=== PATIENT | female | born 2000 | race Hispanic/Latino ===

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

== ENCOUNTER 2019-04-12 14:39 | Outpatient (CLI) | payer OTHER ==
--- NOTE | 2019-04-12 15:39 | ULT ---
EXAM: COMPLETE OB ULTRASOUND GREATER THAN 14 WEEKS: 04/12/19 HISTORY: Normal , anatomy, size and dates. Single viable intrauterine fetus is noted in breach presentation. Cervical length 4.2 cm. Placenta is fundal and maternal right side. heart rate 126 beats per minute. Amniotic fluid is within norm al limits. anatomy: Visualized brain, four chamber heart, three vessel cord, stomach, bladder, kidneys, spine, extr emity regions are unremarkable. biometry: BPD 4.1 cm - - 18 weeks, 4 days Head circumference 15.8 cm - - 18 weeks, 5 days Abdominal circumference 13.4 cm - - 19 weeks, 0 days Femur length 2.8 cm - - 18 weeks, 4 days IMPRESSION: 1. Gestational age average 18 weeks, 5 days. 2. CHANDLER 08/30/19. 3. Estimated weight 253 grams. POS: TPC
== END 2019-04-12 14:40 | disposition home or self-care (01) ==
LOC: BICULT 14:39
PROVIDERS: ATTEND Family Medicine
DX: Z34.82 Encounter for supervision of other normal pregnancy, second trimester (principal); Z3A.18 18 weeks gestation of pregnancy
CPT/HCPCS: 76805

== ENCOUNTER 2019-06-04 13:29 | Day surgery (SDC) | payer OTHER ==
[2019-06-04 14:01] VITALS: BP 126/73; TEMP 98.5; BMI 28.1
[2019-06-04] MEDS ORDERED: hydrALAZINE 20 MG/ML VIAL SLOW IVP PRN (14:13)
--- NOTE | 2019-06-04 14:22 | PDOC.LDHP ---
Labor and Delivery H&P Chief complaint: abdominal pain HPI: 18 yo presents for evaluation of abdominal pain and back pain. Pt reports she has midline thoracic back pain that is rated 9/10. She reports this pain has been present since before and has occasionally flared up Current gestational age (weeks): 27 (27+5) Grav: 1 Para: 0 Current complications: none Current medications: pre-shruti vitamins Previous surgical history: none Allergies/Adverse Reactions: Allergies Allergy/AdvReac Type Severity Reaction Status Date / Time No Known Drug Allergies Allergy Verified 06/04/19 13:58 Social history: none - Physical Exam Vital signs reviewed and normal: yes General: NAD, resting Heart: RRR Lungs: CTAB Abdomen: NTTP Extremeties: no edema FHT: category 1, variability present - OB Labs Blood type: unknown RH: unknown Antibody Screen: unknown HIV: unknown RPR: unknown HEPSAg: unknown 1 hour GCT: unknown GBS: unknown - Plan -: 1) MSK pain - pt had mild ruq tenderness to palpation - RUQ showed no evidence of cholecystitis, but did show mild rt hydronephrosis - Renal US showed good ureteral jet flow b/l no evidenc of obstruction - pts pain responded to atarax and morphine - very likely MSK, advised to take tylenol prn and occasional massages/heating pad for pain relief PRN - Pt to f/u with POB Addendum - Attending - Attending Attestation Date/Time: 06/06/19 1049 I personally evaluated the patient and discussed the management with Dr. Caro I agree with the History, Examination, Assessment and Plan documented above with any addition or exceptions noted below. Pt with 1yr h/o intermittent mid thoracic back pain who has presented with a flare of pain. worse with certain movements. denies h/o scoliosis or other skeletal problems. vital signs: 121/66 71 16 99.1 nad focal ttp along paravertebral muscles mid thoracic left>right. some tenderness midline after massage to the area and point pressure pt reports some relief. we discussed posture, light excercise to strengthen, and to consider supportive bra. massage and heat to the area as needed, tylenol pt to f/u with Dr Marte as scheduled
[2019-06-04] MEDS ORDERED: Acetaminophen 325 MG TAB PO SCH (14:30)
[2019-06-04] MEDS ORDERED: hydrOXYzine 25 MG TAB PO SCH (14:30)
[2019-06-04 14:44] LABS: Bacteria/HPF None Seen HPF (None Seen); Bilirubin Negative (Negative); Blood, Urine Negative (Negative); Clarity Clear (Clear); Glucose, Urine (Dipstick) Normal (Negative); Leukocyte Negative Leu/uL (Negative); Nitrite Negative (Negative); Protein, Urine (Dipstick) 30 mg/dL (Neg-Trace); Urobilinogen Normal mg/dL (Less than 2)
[2019-06-04 14:45] LABS: Urine Culture Reflex No No
[2019-06-04 14:48] LABS: #Eosinphils 0.1 thou/uL (0.0-0.7); #Lymphocytes 1.6 thou/uL (1.20-3.40); #Monocytes 0.5 thou/uL (0.11-0.59); #Neutrophils 8.7 thou/uL (1.40-6.50); %Basophils 0.4 % (0.0-1.0); %Eosinophils 0.6 % (0.0-10.0); %Lymphocytes 14.5 % (28.0-48.0); %Monocytes 4.2 % (0.0-4.0); %Neutrophils 80.4 % (31.0-61.0); Hemoglobin 11.6 g/dL (12.0-16.0); Mean Corpuscular HGB CONC 33.2 g/dL (32.0-36.0); Mean Corpuscular Hemoglobin 29.3 pg (25.0-35.0); Mean Corpuscular Volume 88.1 fL (78.0-98.0); Mean Platelet Volume 7.3 fL (7.4-10.4); Platelet Count 309 thou/uL (130-400); Red Blood Cell (RBC) Count 3.97 mill/uL (4.00-5.20); White Blood Cell (WBC) Count 10.8 thou/uL (4.8-10.8)
[2019-06-04 15:11] LABS: ALT (SGPT) 17 U/L (8-55); AST (SGOT) 15 U/L (5-30); Albumin 3.5 g/dL (3.5-5.0); Alkaline Phosphatase 210 U/L (40-150); Anion Gap 11 mmol/L (10-20); BUN (Urea Nitrogen) 11 mg/dL (8.4-21.0); Bilirubin, Total 0.3 mg/dL (0.2-1.2); Calc. Creatinine Clearance 161 mL/min (70-130); Calcium 9.2 mg/dL (7.8-10.44); Carbon Dioxide 21 mmol/L (22-29); Chloride 107 mmol/L (98-107); Estimated GFR-MDRD Greater than 90; Globulin 3.3 g/dL (2.4-3.5); Glucose 105 mg/dL (70-105); Potassium 3.8 mmol/L (3.5-5.1); Protein, Total 6.8 g/dL (6.0-8.3); Sodium 135 mmol/L (136-145)
[2019-06-04] MEDS ORDERED: Morphine 4 MG/ML VIAL IM PRN (15:18)
[2019-06-04] MEDS ORDERED: Morphine 4 MG/ML VIAL ONE (15:20)
--- NOTE | 2019-06-04 16:16 | ULT ---
EXAM: US Gallbladder RUQ CLINICAL HISTORY: Right upper quadrant tenderness, nausea. Patient is . COMPARISON: None. FINDINGS: Pancreas: Limited evaluation due to overlying bowel gas Liver:Normal echotexture. No hepatic masses or intrahepatic biliary dilatation. Right hepatic lobe me asures 15.7 cm. Portal vein: Patent with appropriate directional flow Gallbladder: Sonographic evidence of echogenic material with posterior acoustic shadowing compatible with 1.5 and 1.4 cm adherent gallstones. Gallbladder wall is not thickened. Barksdale's sign:Negative Bile ducts: 0.3 cm Right kidney: Hydronephrosis.. Right kidney measures 10.4 cm in length. heart tones with a rate of 136 bpm IMPRESSION: 1. Sonographic evidence of cholelithiasis without definite evidence of cholecystitis 2. Right-sided hydronephrosis, incompletely evaluated
--- NOTE | 2019-06-04 17:39 | ULT ---
EXAM: BILATERAL RENAL ULTRASOUND COMPLETE: 06/04/19 HISTORY: Hematuria, right hydronephrosis, concern for obstruction or stone. FINDINGS: Right kidney measures 11.4 x 5.2 x 5.3 cm. The left kidney measures 10.9 x 5.3 x 6.1 cm. FINDINGS: Mild to moderate right renal hydronephrosis. No perinephric process. Urinary bladder is unremarkable although nearly empty. IMPRESSION: Right renal mild to moderate hydronephrosis. No other significant acute process. POS: PAULO
== END 2019-06-04 17:33 | disposition home or self-care (01) ==
LOC: L&D/OP 13:29
PROVIDERS: ATTEND Family Medicine
DX: O99.89 Other specified diseases and conditions complicating pregnancy, childbirth and the puerperium (principal); N13.30 Unspecified hydronephrosis; R31.9 Hematuria, unspecified; M54.6 Pain in thoracic spine; Z3A.27 27 weeks gestation of pregnancy
CPT/HCPCS: 76705; 76770; 80053; 81001; 85025; 96372; 99283; J2270

== ENCOUNTER 2019-06-12 10:57 | Inpatient (IN) | payer OTHER, SELFPAY ==
[2019-06-12 11:28] LABS: #Basophils 0.1 thou/uL (0.0-0.2); #Lymphocytes 1.7 thou/uL (1.20-3.40); #Monocytes 0.5 thou/uL (0.11-0.59); #Neutrophils 6.6 thou/uL (1.40-6.50); %Eosinophils 0.2 % (0.0-10.0); %Lymphocytes 19.3 % (28.0-48.0); %Monocytes 5.3 % (0.0-4.0); %Neutrophils 74.2 % (31.0-61.0); Hemoglobin 12.1 g/dL (12.0-16.0); Mean Corpuscular HGB CONC 33.5 g/dL (32.0-36.0); Mean Corpuscular Hemoglobin 29.4 pg (25.0-35.0); Mean Corpuscular Volume 87.9 fL (78.0-98.0); Mean Platelet Volume 6.1 fL (7.4-10.4); Platelet Count 315 thou/uL (130-400); RBC Distribution Width 12.5 % (11.5-14.5); Red Blood Cell (RBC) Count 4.12 mill/uL (4.00-5.20); White Blood Cell (WBC) Count 8.8 thou/uL (4.8-10.8)
[2019-06-12 11:41] LABS: Bilirubin Large (Negative); Blood, Urine Negative (Negative); Clarity Cloudy (Clear); Glucose, Urine (Dipstick) Negative (Negative); Leukocyte Negative (Negative); Nitrite Negative (Negative); Protein, Urine (Dipstick) 30 mg/dL (Neg-Trace)
[2019-06-12 11:43] LABS: Bacteria/HPF 2+ HPF (None Seen); RBC/HPF 0-3 HPF (0-3)
[2019-06-12 11:44] LABS: Mucous/LPF 2+ LPF (<2+)
[2019-06-12 11:45] LABS: ALT (SGPT) 534 U/L (8-55); AST (SGOT) 286 U/L (5-30); Albumin 3.5 g/dL (3.5-5.0); Alkaline Phosphatase 562 U/L (40-150); Anion Gap 15 mmol/L (10-20); BUN (Urea Nitrogen) 9 mg/dL (8.4-21.0); Bilirubin, Total 3.4 mg/dL (0.2-1.2); Calc. Creatinine Clearance 0 mL/min (70-130); Calcium 9.1 mg/dL (7.8-10.44); Carbon Dioxide 19 mmol/L (22-29); Chloride 108 mmol/L (98-107); Estimated GFR-MDRD Greater than 90; Globulin 3.5 g/dL (2.4-3.5); Glucose 91 mg/dL (70-105); Lipase 18 U/L (8-78); Potassium 3.9 mmol/L (3.5-5.1); Sodium 138 mmol/L (136-145)
--- NOTE | 2019-06-12 13:19 | ULT ---
US Gallbladder RUQ: 06/12/2019 11:55 AM CLINICAL HISTORY: Abdominal pain that is increasing in a 27-year-old female. STUDY: Limited right upper quadrant ultrasound of abdomen. COMPARISON: 06/04/2019 FINDINGS: Liver: Size: Normal. Echogenicity: Normal. Contour: Smooth. Mass: None. Bile ducts: No intrahepatic or extrahepatic biliary dilatation. Common bile duct measures 16 mm. Gallbladder: Cholelithiasis. A positive sonographic Barksdale's sign was reported by the technologist. Pancreas: Head and body appear normal; tail obscured by bowel gas. Right kidney: Mild stable hydronephrosis as seen on the prior examination. Right kidney measuring 10. 0 cm in length. IMPRESSION: 1. Cholelithiasis and enlargement of the common bile duct. There is interval enlargement compared to the prior exam. 2. Hydronephrosis of the right kidney may be secondary to compression of the distal ureter.
[2019-06-12 15:54] VITALS: BMI 28.3
[2019-06-12] MEDS ORDERED: Sodium Chloride 0.9% 1,000 ML IV SCH (15:56)
--- NOTE | 2019-06-12 16:13 | PDOC.FPROB ---
FMR OB H&P: HPI - History of Present Illness Chief Complaint: back pain Indentification: History of Present Illness: This 18-yo w/ hx of 1 miscarriage presented to outside ED for evaluation of upper back pain which was worsening over the past week. The pain started off and on prior to and was absent for the majority of ; however, last week the patient started having upper back pain L>R. U/ S at the time showed cholelithiasis. Her pain worsened today, and abd u/s today showed increased interval change w/ dilated CBD and choledocholithiasis. She notes no other symptoms w/ the pain. She is still eating and drinking, although she hasn't had anything to eat today. She denies MARTINEZ, leg swelling, and HTN. No other problems reported for this . She is feeling the baby move, denies VB and LOF or discharge. Primary Care Physician: Vasu FMR OB H&P: Current - Care : 2 Para: 0 Gestational age: 28.5 wga Due date: 08/30/2020 Dating Criteria: 18.5 wga U/S Course/Complications: cholelithiasis FMR OB H&P: History - OB History OB History: Previous miscarriage at 9 wga - Social History Social History: Denies drugs, alcohol, smoking. - Family History Family History: FHx: hypercholesterolemia Denies history of gallbladder problems FMR OB H&P: Medications - Current Home Medications: Medication Instructions Recorded Confirmed Type Vitamin 1 tablet PO DAILY 06/04/19 06/04/19 History Allergies/Adverse Reactions: Allergies Allergy/AdvReac Type Severity Reaction Status Date / Time No Known Drug Allergies Allergy Verified 06/04/19 13:58 FMR OB H&P: ROS - Review of Systems General: denies: fever/chills FMR OB H&P: Vital Signs - Maternal Vital signs: Vital Signs - First Documented Temp Pulse Resp BP 99.5 F 88 20 143/78 H 06/12/19 15:52 06/12/19 15:52 06/12/19 15:52 06/12/19 15:52 FMR OB H&P: Results - Labs Lab results: Laboratory Results - last 24 hr 06/12/19 06/12/19 06/12/19 11:26 11:26 11:26 WBC 8.8 RBC 4.12 Hgb 12.1 Hct 36.3 MCV 87.9 MCH 29.4 MCHC 33.5 RDW 12.5 Plt Count 315 MPV 6.1 L Neutrophils % 74.2 H Lymphocytes % 19.3 L Monocytes % 5.3 H Eosinophils % 0.2 Basophils % 1.0 Neutrophils # 6.6 H Lymphocytes # 1.7 Monocytes # 0.5 Eosinophils # 0.0 Basophils # 0.1 Sodium 138 Potassium 3.9 Chloride 108 H Carbon Dioxide 19 L Anion Gap 15 BUN 9 Creatinine 0.59 L Estimated GFR (MDRD) Greater than 90 Glucose 91 Calcium 9.1 Total Bilirubin 3.4 H AST 286 H ALT 534 H Alkaline Phosphatase 562 H Troponin I Less than 0.010 Serum Total Protein 7.0 Albumin 3.5 Globulin 3.5 Albumin/Globulin Ratio 1.0 L Lipase 18 Urine Color Urine Clarity Urine pH Ur Specific [place] Urine Protein Urine Glucose (UA) Urine Ketones Urine Blood Urine Nitrite Urine Bilirubin Urine Urobilinogen Ur Leukocyte Esterase Urine RBC Urine WBC Ur Squamous Epith Cells Urine Bacteria Urine Mucus 06/12/19 11:30 WBC RBC Hgb Hct MCV MCH MCHC RDW Plt Count MPV Neutrophils % Lymphocytes % Monocytes % Eosinophils % Basophils % Neutrophils # Lymphocytes # Monocytes # Eosinophils # Basophils # Sodium Potassium Chloride Carbon Dioxide Anion Gap BUN Creatinine Estimated GFR (MDRD) Glucose Calcium Total Bilirubin AST ALT Alkaline Phosphatase Troponin I Serum Total Protein Albumin Globulin Albumin/Globulin Ratio Lipase Urine Color Sandra Urine Clarity Cloudy Urine pH 6.0 Ur Specific [place] 1.025 Urine Protein 30 A Urine Glucose (UA) Negative Urine Ketones 40 A Urine Blood Negative Urine Nitrite Negative Urine Bilirubin Large A Urine Urobilinogen 1.0 Ur Leukocyte Esterase Negative Urine RBC 0-3 Urine WBC 4-6 A Ur Squamous Epith Cells 11-20 A Urine Bacteria 2+ A Urine Mucus 2+ A FMR OB H&P: A/P - Problem List (1) Choledocholithiasis Current Visit: Yes Status: Acute Code(s): K80.50 - CALCULUS OF BILE DUCT W/ O CHOLANGITIS OR CHOLECYST W/O OBST (2) and not yet delivered in second trimester Current Visit: Yes Status: Acute Code(s): Z34.92 - ENCNTR FOR SUPRVSN OF NORMAL PREG, UNSP, SECOND TRIMESTER Disposition: 18 yo who presents for: Choledocholithiasis w/ Transaminitis - GI consulted for possible ERCP - If GI here is unable to do ERCP, will need to transfer. - Urine Pr/Cr to assess for preeclampsia in light of RUQ pain in second trimester - Continue to monitor patient - If decrease in movement, begin FHR/[place] monitoring Dispo: Inpatient Alicia Dunn MD PGY-1 Discussion: Date/Time: 06/12/19 4502 This H&P was discussed with Dr. Womack and Dr. Puckett who agree with the above documentation and plan.
[2019-06-12] MEDS ORDERED: Promethazine HCl 25 MG/ML VIAL IM PRN (16:48)
[2019-06-12] MEDS ORDERED: Ondansetron PF 4 MG/2 ML Vial IVP PRN (16:48)
[2019-06-12] MEDS ORDERED: hydrALAZINE 20 MG/ML VIAL SLOW IVP PRN (16:48)
[2019-06-12] MEDS: Lactated Ringer's 1,000 ML IV SCH (16:59)
--- NOTE | 2019-06-12 18:20 | PDOC.FPROB ---
FMR OB H&P: Medications - Current Home Medications: Medication Instructions Recorded Confirmed Type Vitamin 1 tablet PO DAILY 06/04/19 06/12/19 History Allergies/Adverse Reactions: Allergies Allergy/AdvReac Type Severity Reaction Status Date / Time No Known Drug Allergies Allergy Verified 06/12/19 18:22 FMR OB H&P: Vital Signs - Maternal Vital signs: Vital Signs - First Documented Temp Pulse Resp BP 99.5 F 88 20 143/78 H 06/12/19 15:50 06/12/19 15:50 06/12/19 15:50 06/12/19 15:50 FMR OB H&P: Results - Labs Lab results: Laboratory Results - last 24 hr 06/12/19 06/12/19 06/12/19 11:26 11:26 11:26 WBC 8.8 RBC 4.12 Hgb 12.1 Hct 36.3 MCV 87.9 MCH 29.4 MCHC 33.5 RDW 12.5 Plt Count 315 MPV 6.1 L Neutrophils % 74.2 H Lymphocytes % 19.3 L Monocytes % 5.3 H Eosinophils % 0.2 Basophils % 1.0 Neutrophils # 6.6 H Lymphocytes # 1.7 Monocytes # 0.5 Eosinophils # 0.0 Basophils # 0.1 Sodium 138 Potassium 3.9 Chloride 108 H Carbon Dioxide 19 L Anion Gap 15 BUN 9 Creatinine 0.59 L Estimated GFR (MDRD) Greater than 90 Glucose 91 Calcium 9.1 Total Bilirubin 3.4 H AST 286 H ALT 534 H Alkaline Phosphatase 562 H Lactate Dehydrogenase Troponin I Less than 0.010 Serum Total Protein 7.0 Albumin 3.5 Globulin 3.5 Albumin/Globulin Ratio 1.0 L Lipase 18 Urine Color Urine Clarity Urine pH Ur Specific [place] Urine Protein Urine Glucose (UA) Urine Ketones Urine Blood Urine Nitrite Urine Bilirubin Urine Urobilinogen Ur Leukocyte Esterase Urine RBC Urine WBC Ur Squamous Epith Cells Urine Bacteria Urine Mucus 06/12/19 06/12/19 11:30 17:14 WBC RBC Hgb Hct MCV MCH MCHC RDW Plt Count MPV Neutrophils % Lymphocytes % Monocytes % Eosinophils % Basophils % Neutrophils # Lymphocytes # Monocytes # Eosinophils # Basophils # Sodium Potassium Chloride Carbon Dioxide Anion Gap BUN Creatinine Estimated GFR (MDRD) Glucose Calcium Total Bilirubin AST ALT Alkaline Phosphatase Lactate Dehydrogenase 337 H Troponin I Serum Total Protein Albumin Globulin Albumin/Globulin Ratio Lipase Urine Color Sandra Urine Clarity Cloudy Urine pH 6.0 Ur Specific [place] 1.025 Urine Protein 30 A Urine Glucose (UA) Negative Urine Ketones 40 A Urine Blood Negative Urine Nitrite Negative Urine Bilirubin Large A Urine Urobilinogen 1.0 Ur Leukocyte Esterase Negative Urine RBC 0-3 Urine WBC 4-6 A Ur Squamous Epith Cells 11-20 A Urine Bacteria 2+ A Urine Mucus 2+ A FMR OB H&P: A/P - Problem List (1) Choledocholithiasis Current Visit: Yes Status: Acute Code(s): K80.50 - CALCULUS OF BILE DUCT W/ O CHOLANGITIS OR CHOLECYST W/O OBST (2) and not yet delivered in second trimester Current Visit: Yes Status: Acute Code(s): Z34.92 - ENCNTR FOR SUPRVSN OF NORMAL PREG, UNSP, SECOND TRIMESTER Discussion: Date/Time: 06/12/191819 PCP: Vasu HPI: This is a 18 yo at 28.5 wks admitted for workup of cholelithiasis. She states she has had 2 weeks of worsening lower back pain sometimes radiating up the shoulders. Nothing seems to make it better or worse. She denies N/V/D. She denies eating making it worse. She states the pain comes and goes, it is currently ranked at 6/10. She has tried Tylenol and this has not helped. She affirms movement, denies cxns, ROM, bleeding/discharge. Denies MARTINEZ, visual changes, SOB, or swelling. History: OB hx: 1 miscarriage PMH: denies htn, asthma, dm PSH: neg Meds: PNV All: NKDA Soc Hx: denies smoking, alcohol, drugs Fam Hx: denies downs, congenital defects REVIEW OF SYSTEMS: Gen: no fever, chills, or sweats Neuro: no numbness/tingling, no weakness, denies headache ENT: denies congestion Eyes: no visual changes Resp: no cough, no SOB, no wheeze Card: denies chest pain, no palpitations GI: see hpi : no dysuria, no hematuria Skin: no rash, no erythema Psych: denies hx anxiety/depression Vitals: T: 99.5 R: 20 BP: 129/84 P:88 Sat: 100% on RA Wt: 72kg PHYSICAL EXAMINATION: General: NAD, alert and oriented x3 HEENT: EOMI, normal sclera Neck: Supple. Full ROM. Heart/Cardiovascular System: RRR, Cap refill < 3 seconds, no rub, no murmur Lungs/Respiratory System: clear to auscultation bilaterally. No increased work of breathing. Room air. Abdomen/Gastro-Intestinal System: + pain to palpation of RUQ, normal bowel sounds, Gravid Extremities: Warm extremities. No cyanosis or edema. Neuro: No gross deficits appreciated Psychiatry: Awake, Alert and cooperative with exam Skin: No lesions, rashes Musculoskeletal: Full ROM A/P: This is a 18 yo at 28.5 wks admitted for workup of cholelithiasis. # likely choledocolithiasis - 16mm CBD, interval increased from 06/04 on RUQ US - Gen surg recd GI consult, spoke to Dr. Regalado, appreciate recs - AST 986, ALT 534, ALP 563, bili 3.4 # - 28.5 wks, q shift monitoring - Elevated pressure on arrival now resolved - Will check urine pr/cr, ldh, haptoglobin to r/o HELLP - Plts 315, hgb 12.1, asymptomatic Dispo: awaiting GI recs to see if patient would be a candidate for ERCP Addendum - Attending - Attending Attestation Date/Time: 06/13/19 0921 I personally evaluated the patient and discussed the management with Dr. Womack on 06/12. I agree with the History, Examination, Assessment and Plan documented above with any addition or exceptions noted below. CC: abd pain We will follow - GI and GS consulted, antibiotics per specialists. qShift NST, BPP/growth on admission. Notified Dr. Leone, her continuity, who will see the patient but agrees with admission to our service.
[2019-06-12] MEDS ORDERED: Morphine 4 MG/ML VIAL SLOW IVP PRN (18:35)
[2019-06-12 20:07] LABS: Creatinine, Urine 171.37 mg/dL (47-110)
[2019-06-13] MEDS: Lactated Ringer's 1,000 ML IV SCH ×3 (01:31→21:32)
--- NOTE | 2019-06-13 06:04 | PDOC.OBAPN ---
FMR OB AP PN: Sub - Interval History Hospital Day: 2 (Admitted 06/13/2019) Chief Complaint: Back pain, improved Indentification: 18-yo Interval History: NAEON. No complaints. +FM, no ctx. Slept well. No concerns. FMR OB AP PN: Obj - Maternal Vital signs: BP: 127/66 HR: 92 RR: 14 Tmax: 98.2 F Pox: Satting well on RA Wt: 72.5 kg - Urine output I&O: not measuring - Heart Tones Baseline: 150 (Reactive. Few spontaneous intermittent decelerations.) Variability: moderate Acceleration: present [place] contractions every: none FMR OB AP PN: Exam - Physical Exam General: NAD (sleepy) HEENT: normocephalic and atraumatic Heart: RRR, normal S1/S2, no murmurs/rubs/gallops General: CTAB, no respiratory distress Abdomen: soft, gravid, non-tender, bowel sound present Psychiatric: normal mood and affect FMR OB AP PN: Data - Labs Lab results: Laboratory Results - last 24 hr 06/12/19 06/12/19 06/12/19 11:26 11:26 11:26 WBC 8.8 RBC 4.12 Hgb 12.1 Hct 36.3 MCV 87.9 MCH 29.4 MCHC 33.5 RDW 12.5 Plt Count 315 MPV 6.1 L Neutrophils % 74.2 H Lymphocytes % 19.3 L Monocytes % 5.3 H Eosinophils % 0.2 Basophils % 1.0 Neutrophils # 6.6 H Lymphocytes # 1.7 Monocytes # 0.5 Eosinophils # 0.0 Basophils # 0.1 Sodium 138 Potassium 3.9 Chloride 108 H Carbon Dioxide 19 L Anion Gap 15 BUN 9 Creatinine 0.59 L Estimated GFR (MDRD) Greater than 90 Glucose 91 Calcium 9.1 Total Bilirubin 3.4 H AST 286 H ALT 534 H Alkaline Phosphatase 562 H Lactate Dehydrogenase Troponin I Less than 0.010 Serum Total Protein 7.0 Albumin 3.5 Globulin 3.5 Albumin/Globulin Ratio 1.0 L Lipase 18 Urine Color Urine Clarity Urine pH Ur Specific [place] Urine Protein Urine Glucose (UA) Urine Ketones Urine Blood Urine Nitrite Urine Bilirubin Urine Urobilinogen Ur Leukocyte Esterase Urine RBC Urine WBC Ur Squamous Epith Cells Urine Bacteria Urine Mucus U Random Total Protein Urine Creatinine 06/12/19 06/12/19 06/12/19 11:30 17:14 19:00 WBC RBC Hgb Hct MCV MCH MCHC RDW Plt Count MPV Neutrophils % Lymphocytes % Monocytes % Eosinophils % Basophils % Neutrophils # Lymphocytes # Monocytes # Eosinophils # Basophils # Sodium Potassium Chloride Carbon Dioxide Anion Gap BUN Creatinine Estimated GFR (MDRD) Glucose Calcium Total Bilirubin AST ALT Alkaline Phosphatase Lactate Dehydrogenase 337 H Troponin I Serum Total Protein Albumin Globulin Albumin/Globulin Ratio Lipase Urine Color Sandra Urine Clarity Cloudy Urine pH 6.0 Ur Specific [place] 1.025 Urine Protein 30 A Urine Glucose (UA) Negative Urine Ketones 40 A Urine Blood Negative Urine Nitrite Negative Urine Bilirubin Large A Urine Urobilinogen 1.0 Ur Leukocyte Esterase Negative Urine RBC 0-3 Urine WBC 4-6 A Ur Squamous Epith Cells 11-20 A Urine Bacteria 2+ A Urine Mucus 2+ A U Random Total Protein 27 H Urine Creatinine 171.37 H - Imaging Imaging: Abd U/S reviewed. FMR OB AP PN: A/P - Problem List (1) Choledocholithiasis Current Visit: Yes Status: Acute Code(s): K80.50 - CALCULUS OF BILE DUCT W/ O CHOLANGITIS OR CHOLECYST W/O OBST (2) and not yet delivered in second trimester Current Visit: Yes Status: Acute Code(s): Z34.92 - ENCNTR FOR SUPRVSN OF NORMAL PREG, UNSP, SECOND TRIMESTER Disposition: 18-yo here for: Choledocholithiasis: - GI consulted. Appreciate recs. - ERCP today. - NPO - Pain control: morphine prn in third trimester: - Continue to monitor well-being as needed - Continue to monitor for S/Sx of preeclampsia. Dispo: Inpatient. Monitor on antepartum. Discussion: Date/Time: 06/13/19 0601 This H&P was discussed with Dr. Thompson and Dr. Dowling, who agree with the above documentation and plan. Signature: Alicia Dunn MD PGY-1 Addendum - Attending - Attending Attestation Date/Time: 06/13/19 0930 I personally discussed the management with Dr. Dunn I agree with the History, Examination, Assessment and Plan documented above with any addition or exceptions noted below. 18 yo female at 28.6 wks by LMP/15 wk sono? admitted for symptomatic uncomplicated choledocholithiasis HD# 1 VS, labs, imaging, and record reviewed. 1. Choledocholithiasis: GI to perform ESRCP today. Currently undergoing procedure. Follow up closely afterwards. Risk for pancreatitis. Monitor overnight. Needs gallbladder removed. Labs continue to up trend. Lipase WNL. 2. sIUP: IOB labs reviewed. Anatomy sono reviewed. Appropriate growth. Will give Tdap at d/c. BPP 06/09 this AM with TRISH = 9.7 cm. Will need prolonged heart monitoring after procedure. Continue to up date PCP of patient's progression. 3. hx of SAB 4. Iron def anemia: Start iron. Continue to trend outpatient. Follow up after procedure. Henny
[2019-06-13] MEDS ORDERED: Iothalamate Meglumine 60% 50 ML VIAL FS ONE ×2 (06:52→11:23)
[2019-06-13] MEDS ORDERED: Indomethacin 50 MG SUPP ONE (06:52)
[2019-06-13] MEDS ORDERED: Fentanyl 100 MCG/2 ML VIAL ONE (07:33)
[2019-06-13 08:41] LABS: #Basophils 0.1 thou/uL (0.0-0.2); #Eosinphils 0.1 thou/uL (0.0-0.7); #Lymphocytes 1.7 thou/uL (1.20-3.40); #Monocytes 0.5 thou/uL (0.11-0.59); #Neutrophils 5.4 thou/uL (1.40-6.50); %Basophils 0.7 % (0.0-1.0); %Eosinophils 1.6 % (0.0-10.0); %Monocytes 6.7 % (0.0-4.0); Hemoglobin 10.8 g/dL (12.0-16.0); Mean Corpuscular Hemoglobin 29.1 pg (25.0-35.0); Mean Corpuscular Volume 88.1 fL (78.0-98.0); Mean Platelet Volume 7.2 fL (7.4-10.4); Platelet Count 279 thou/uL (130-400); RBC Distribution Width 12.5 % (11.5-14.5); White Blood Cell (WBC) Count 7.8 thou/uL (4.8-10.8)
[2019-06-13 08:47] LABS: PTT 24.7 SEC (22.9-36.1); Prothrombin Time 12.8 SEC (12.0-14.7)
[2019-06-13 09:03] LABS: ALT (SGPT) 744 U/L (8-55); AST (SGOT) 395 U/L (5-30); Albumin 3.2 g/dL (3.5-5.0); Alkaline Phosphatase 546 U/L (40-150); Anion Gap 11 mmol/L (10-20); BUN (Urea Nitrogen) 9 mg/dL (8.4-21.0); Bilirubin, Total 4.2 mg/dL (0.2-1.2); Calc. Creatinine Clearance 188 mL/min (70-130); Calcium 8.5 mg/dL (7.8-10.44); Carbon Dioxide 22 mmol/L (22-29); Chloride 106 mmol/L (98-107); Estimated GFR-MDRD Greater than 90; Globulin 2.4 g/dL (2.4-3.5); Glucose 85 mg/dL (70-105); Lipase 12 U/L (8-78); Potassium 3.8 mmol/L (3.5-5.1); Protein, Total 5.6 g/dL (6.0-8.3); Sodium 135 mmol/L (136-145)
--- NOTE | 2019-06-13 10:18 | ULT ---
ULTRASOUND BIOPHYSICAL PROFILE: HISTORY: Postop evaluation of fetus. FINDINGS: A single live intrauterine gestation is seen with a heart rate of 157 beats per minute. TRISH me asures 9.7 cm. The placenta is posterior and to the maternal right without placenta previa. Vertex presentation is seen. Biophysical profile: tone: 2 breathin movements: 2 Amniotic fluid: 2 IMPRESSION: Single live intrauterine gestation with an ultrasound biophysical profile score of 8/8. POS: TPC
[2019-06-13] MEDS ORDERED: cefTRIAXone\\ROCEPHIN 1 GM in Sodium Chloride 0.9% 100 ML IVPB SCH (10:30)
[2019-06-13] MEDS ORDERED: Furosemide 20 MG TAB PO SCH (11:15)
--- NOTE | 2019-06-13 11:45 | CON ---
DATE OF CONSULTATION: 06/12/2019 REASON FOR CONSULTATION: Abdominal pain, abnormal LFTs, and common bile duct stone. HISTORY OF PRESENT ILLNESS: Ms. Víctor Segovia is a very pleasant 18-year-old [place] female, who is 28 weeks . The patient has been having abdominal pain over the last several months. Her pain is almost always over the epigastric area and also in between shoulder blades. She has nausea occasionally. No vomiting. The pain has been getting worse over the last 2 weeks. The pain was more frequent and lasts longer. She has had no fever or chills. She came to the ER and was found to have gallstones and also dilated CBD. Apparently, she was here 2 weeks. At that time, she only had gallstone, but no dilation of the CBD. markedly elevated LFTs indicative of common bile duct stone. The CBD is dilated to 16 mm. At the time of the consultation, she appears very comfortable. She had no more nausea and she actually feels hungry, she wants to eat. The patient has no relevant history. ALLERGIES: NONE. SOCIAL HISTORY: The patient does not smoke or drink alcohol. MEDICAL ILLNESSES: None. PAST SURGICAL HISTORY: None. The patient had miscarriage in the past. She is 28 weeks . FAMILY HISTORY: unknown. REVIEW OF SYSTEMS: Ten-point system review is totally unremarkable except for the abdominal pain, nausea PHYSICAL EXAMINATION: GENERAL: She is a very pleasant, young [place] female, who appears very comfortable. VITAL SIGNS: Afebrile. Temperature 98.1 degrees Fahrenheit, pulse is 79, blood pressure 136/72. HEENT: Conjunctivae clear. NECK: Supple. No adenitis or thyromegaly noted. CARDIOVASCULAR SYSTEM: First and second heart sounds heard are normal. LUNGS: Clear to auscultation. ABDOMEN: Soft and mildly tender over the epigastric area. There is no rebound tenderness. The uterus is above the umbilicus. No masses. EXTREMITIES: Reveal no edema. LABORATORY DATA: CBC; WBC 8800, hemoglobin 12.1, hematocrit 36.3, MCV 87.9, platelet count 315,000, polymorphs 74, lymphocytes 19, monocytes 5. Chemistry panel; chem-7 is normal. CO2 is 19, chloride 108, BUN is 9, creatinine is 0.59, bilirubin 3.4, AST 286, ALT 534, alkaline phosphatase 562, albumin 3.5, lipase is 18. Abdominal sonogram showed gallstones and dilation of CBD to 16 mm. CLINICAL IMPRESSION: A 18-year-old [place] female with gallstones, the clinical picture is suggestive of common bile duct stone. Also, CBD is dilated to 16 mm. I had a long talk with the patient and the family is in the room, both parents and also is present. I did explain the procedure of ERCP for tomorrow. The procedure, risks and benefits were explained to the patient. We also explained about the potential for bleeding, sepsis, pancreatitis, perforation. She fully understood the procedure and we will plan for ERCP tomorrow. Job ID: [id number]
[2019-06-13] MEDS ORDERED: Ketorolac Tromethamine 30 MG/ML VIAL IVP PRN (11:59)
[2019-06-13] MEDS ORDERED: Meperidine HCl/PF 25 MG/ML VIAL SLOW IVP PRN (11:59)
[2019-06-13] MEDS ORDERED: PACU-Morphine 4MG/ML VIAL SLOW IVP PRN (11:59)
[2019-06-13] MEDS ORDERED: Promethazine HCl 25 MG/ML VIAL IM PRN (11:59)
[2019-06-13] MEDS ORDERED: Ondansetron HCl/PF 4 MG/2 ML Vial IVP PRN (11:59)
[2019-06-13] MEDS ORDERED: Promethazine HCl 25 MG/ML VIAL SLOW IVP PRN (11:59)
--- NOTE | 2019-06-13 12:10 | RAD ---
XR ERCP History: Pain Comparison: None. Findings: The intrahepatic or extra hepatic biliary system is dilated. After balloon sweep removal of stones, mild improvement of the biliary dilatation. Impression: Removal of common bile duct stones.
--- NOTE | 2019-06-13 12:47 | OP ---
DATE OF PROCEDURE: 06/13/2019 PROCEDURE PERFORMED: Endoscopic retrograde cholangiopancreatography with sphincterotomy and mechanical lithotripsy and balloon stone extraction. PREOPERATIVE DIAGNOSIS: Choledocholithiasis. DESCRIPTION OF PROCEDURE: Informed consent was obtained from the patient, including risk for pancreatitis, perforation, bleeding, and failed cannulation. Also, given her at 28 weeks, radiation exposure was discussed as well. She was given general anesthesia and continuous monitoring was performed throughout the procedure. She was rolled over to her left side somewhat prone. The duodenoscope was advanced easily to the second portion of the duodenum where the ampulla was identified and appeared unremarkable. The ampulla was small overall. The bile duct was easily selectively cannulated on first touch of the ampulla. A cholangiogram was performed and revealed a 1.5 cm common bile duct with a large distal filling defect. The stone did float up to the distal hepatic duct such that the wire would bounce off the stone and then passed into the gallbladder. Balloon stone extraction was then attempted. The 15 mm balloon passed through the sphincterotomy with minimal resistance. The stone, however, would not pass with the balloon alone and an exchange was made for a mechanical lithotripter. A 2.5 cm basket was used. The stone was grasped and crushed with the basket and a large stone fragment was pulled out with the basket. Multiple additional large stone fragments were then removed with balloon sweep of the bile duct. Occlusive cholangiogram then confirmed the duct to be clear. The patient tolerated the procedure well without immediate problems. The fluid and air were suctioned from the stomach. IMPRESSION: 1. Choledocholithiasis with cholangiogram showing a 1.5 cm common bile duct with a large distal filling defect. The extrahepatic ducts were also dilated. The intrahepatic ducts were unremarkable. 2. A complete sphincterotomy was performed. The 15 mm balloon passes through with minimal resistance. 3. Mechanical lithotripsy with a 2.5 cm basket was required to break up the stone. 4. Multiple large stone fragments were removed with a basket and balloon. These were yellow pigment stones and also white stones. 5. Occlusion cholangiogram confirmed the duct to be clear. RECOMMENDATIONS: 1. We will monitor the patient overnight and recheck her liver tests in the morning. 2. She has been evaluated by General Surgery and will require cholecystectomy after delivery. Job ID: [id number]
[2019-06-13] MEDS ORDERED: Ondansetron PF 4 MG/2 ML Vial IVP PRN (13:16)
[2019-06-13] MEDS: Prenatal Vitamin 1 TAB PO SCH (21:24)
[2019-06-14] MEDS ORDERED: Lactated Ringer's 500 ML IV SCH (02:45)
[2019-06-14 06:02] LABS: ALT (SGPT) 616 U/L (8-55); AST (SGOT) 319 U/L (5-30); Albumin 2.5 g/dL (3.5-5.0); Alkaline Phosphatase 388 U/L (40-150); Anion Gap 12 mmol/L (10-20); BUN (Urea Nitrogen) 7 mg/dL (8.4-21.0); Bilirubin, Total 1.4 mg/dL (0.2-1.2); Calc. Creatinine Clearance 196 mL/min (70-130); Calcium 8.2 mg/dL (7.8-10.44); Carbon Dioxide 19 mmol/L (22-29); Chloride 109 mmol/L (98-107); Estimated GFR-MDRD Greater than 90; Globulin 2.8 g/dL (2.4-3.5); Glucose 76 mg/dL (70-105); Lipase 11 U/L (8-78); Potassium 3.9 mmol/L (3.5-5.1); Protein, Total 5.3 g/dL (6.0-8.3); Sodium 136 mmol/L (136-145)
--- NOTE | 2019-06-14 06:37 | PDOC.OBAPN ---
FMR OB AP PN: Sub - Interval History Hospital Day: 3 (s/p ERCP POD#1) Chief Complaint: none this AM Indentification: 18-F by 15.0wdarling sanches. CHANDLER 08/30/2019 Interval History: BP 80s/40s overnight, responded to bolus. Morphine x1. No N/ V. FMR OB AP PN: Obj - Maternal Vital signs: BP: 100/50 HR: 86 RR: 16 Tmax: 98.1 Pox: 97% on RA Wt: 72.5 kg - Heart Tones Baseline: 145 (Reactive strip) Variability: moderate Acceleration: present Deceleration: absent FMR OB AP PN: Exam - Physical Exam General: NAD (sleeping comfortably) HEENT: normocephalic and atraumatic Heart: RRR, normal S1/S2, no murmurs/rubs/gallops, no edema General: CTAB, no respiratory distress Abdomen: soft, gravid, bowel sound present FMR OB AP PN: Data - Labs Lab results: Laboratory Results - last 24 hr 06/13/19 06/13/19 06/13/19 08:25 08:25 08:25 WBC 7.8 RBC 3.70 L Hgb 10.8 L Hct 32.6 L MCV 88.1 MCH 29.1 MCHC 33.0 RDW 12.5 Plt Count 279 MPV 7.2 L Neutrophils % 69.0 H Lymphocytes % 22.0 L Monocytes % 6.7 H Eosinophils % 1.6 Basophils % 0.7 Neutrophils # 5.4 Lymphocytes # 1.7 Monocytes # 0.5 Eosinophils # 0.1 Basophils # 0.1 PT 12.8 INR 1.0 APTT 24.7 Sodium 135 L Potassium 3.8 Chloride 106 Carbon Dioxide 22 Anion Gap 11 BUN 9 Creatinine 0.55 L Estimated GFR (MDRD) Greater than 90 Glucose 85 Calcium 8.5 Total Bilirubin 4.2 H AST 395 H ALT 744 H Alkaline Phosphatase 546 H Serum Total Protein 5.6 L Albumin 3.2 L Globulin 2.4 Albumin/Globulin Ratio 1.3 Lipase 12 06/14/19 05:19 WBC RBC Hgb Hct MCV MCH MCHC RDW Plt Count MPV Neutrophils % Lymphocytes % Monocytes % Eosinophils % Basophils % Neutrophils # Lymphocytes # Monocytes # Eosinophils # Basophils # PT INR APTT Sodium 136 Potassium 3.9 Chloride 109 H Carbon Dioxide 19 L Anion Gap 12 BUN 7 L Creatinine 0.53 L Estimated GFR (MDRD) Greater than 90 Glucose 76 Calcium 8.2 Total Bilirubin 1.4 H AST 319 H ALT 616 H Alkaline Phosphatase 388 H Serum Total Protein 5.3 L Albumin 2.5 L Globulin 2.8 Albumin/Globulin Ratio 0.9 L Lipase 11 FMR OB AP PN: A/P - Problem List (1) Choledocholithiasis Current Visit: Yes Status: Acute Code(s): K80.50 - CALCULUS OF BILE DUCT W/ O CHOLANGITIS OR CHOLECYST W/O OBST (2) and not yet delivered in second trimester Current Visit: Yes Status: Acute Code(s): Z34.92 - ENCNTR FOR SUPRVSN OF NORMAL PREG, UNSP, SECOND TRIMESTER Disposition: Plan for discharge today pending toleration of diet. Discussion: Date/Time: 06/14/19 0637 18-yo here for: Choledocholithiasis s/p ERCP, POD #1: - GI consulted. Appreciate recs. - Liver enzymes & TBili decreased s/p ERCP. Electrolytes WNL. Lipase WNL. - CLD this AM. Advance diet as tolerated. - Continue to monitor BPs - Pain control: d/c morphine and give Tylenol prn. - Will need cholecystectomy after delivery in third trimester: - Continue to monitor well-being w/ NST per shift. - Continue to monitor for S/Sx of preeclampsia. Signature: Alicia Dunn MD PGY1 Addendum - Attending - Attending Attestation Date/Time: 06/14/19 1331 I personally discussed the management with Dr. Dunn I agree with the History, Examination, Assessment and Plan documented above with any addition or exceptions noted below. 18 yo female at 28.6 wks by LMP/15 wk sono admitted for symptomatic uncomplicated choledocholithiasis HD# 2 Patient doing well this AM. +FM. Denies LOF, ctx, VB. Denies N/V and abdominal pain. Tolerated PO well this morning. Ambulating in the halls. VS, labs, imaging, and record reviewed. 1. Choledocholithiasis: Stone removed. Labs down trending. Tolerating PO. Lipase WNL. GI ok with d/c. Follow up after delivery for gallbladder removal. Will need follow up labs in 1 wk. 2. sIUP: IOB labs reviewed. Anatomy sono reviewed. Appropriate growth. 1 hour gtt = 100. Will give Tdap at d/c. BPP 88 8 with TRISH = 9.7 cm. BPP 8/ with TRISH 7.8 cm. Patient received 1 dose of indomethacin post-op for pancreatitis prevention. NST reactive. Will up date PCP. 3. hx of SAB 4. Iron def anemia: Start iron. Continue to trend outpatient. Consider repeat CBC to see if improved with oral iron, if not consider iron infusion. 5. Borderline TRISH: Appropriate but borderline total per GA. Would consider repeat next week. Ok to d/c to home. Henny
[2019-06-14] MEDS: Lactated Ringer's 1,000 ML IV SCH (06:50)
[2019-06-14] MEDS ORDERED: Acetaminophen 325 MG TAB PO PRN (07:15)
[2019-06-14 07:49] LABS: #Eosinphils 0.1 thou/uL (0.0-0.7); #Monocytes 0.6 thou/uL (0.11-0.59); #Neutrophils 7.8 thou/uL (1.40-6.50); %Basophils 0.1 % (0.0-1.0); %Eosinophils 0.9 % (0.0-10.0); %Lymphocytes 18.9 % (28.0-48.0); %Monocytes 5.8 % (0.0-4.0); %Neutrophils 74.4 % (31.0-61.0); Hemoglobin 9.3 g/dL (12.0-16.0); Mean Corpuscular HGB CONC 33.8 g/dL (32.0-36.0); Mean Corpuscular Hemoglobin 30.4 pg (25.0-35.0); Mean Corpuscular Volume 90.1 fL (78.0-98.0); Mean Platelet Volume 7.2 fL (7.4-10.4); Platelet Count 218 thou/uL (130-400); RBC Distribution Width 12.5 % (11.5-14.5); Red Blood Cell (RBC) Count 3.05 mill/uL (4.00-5.20); White Blood Cell (WBC) Count 10.4 thou/uL (4.8-10.8)
[2019-06-14] MEDS: Prenatal Vitamin 1 TAB PO SCH (09:03)
[2019-06-14] MEDS ORDERED: Cepastat Lozenges 1 LOZ PO PRN (10:02)
[2019-06-14] MEDS ORDERED: Chloraseptic Spray 180 ml Bottle PO PRN (10:05)
--- NOTE | 2019-06-14 11:00 | ULT ---
ULTRASOUND BIOPHYSICAL PROFILE: DATE: 06/14/2019. HISTORY: Post operative monitoring after maternal surgical procedure. FINDINGS: breathin tone: 2 movement: 2 Amniotic fluid volume: 2 heart rate 155 b.p.m. The largest pocket of amniotic fluid is 3.5 cm. However, overall TRISH measured today is 8 cm. gallbladder measures 1 x 1 x 3 cm. Placenta: Posterior. No placenta previa. heart rate: 155 b.p.m. IMPRESSION: 1. Normal biophysical profile score of 8/8, excluding the non-stress test. 2. Mildly distended gallbladder. 3. Questionable oligohydramnios, doubtful. dean archer POS: TPC
[2019-06-14 11:59] VITALS: BP 115/53; TEMP 99.2
[2019-06-14] MEDS ORDERED: Ferrous Fumarate 324 MG TAB PO SCH (14:00)
[2019-06-14] MEDS ORDERED: Adacel (T-DAP) 0.5 ML SYRINGE IM ONE (15:00)
[2019-06-15] MEDS ORDERED: Ferrous Fumarate 324 MG TAB PO SCH (08:00)
== END 2019-06-14 15:30 | disposition home or self-care (01) | DRG 833 ==
LOC: SCSER 10:57 → 3SW 15:46 → L&D 06-13 13:30 → 3SW 06-13 17:41
PROVIDERS: ADMIT Student in an Organized Health Care Education/Training Program; ATTEND Student in an Organized Health Care Education/Training Program
PROC: 0FC98ZZ Extirpation of Matter from Common Bile Duct, Via Natural or Artificial Opening Endoscopic (ICD-10-PCS; principal; 2019-06-13)
PROC: BF10YZZ Fluoroscopy of Bile Ducts using Other Contrast (ICD-10-PCS; 2019-06-13)
DX: O99.613 Diseases of the digestive system complicating pregnancy, third trimester (principal); K80.70 Calculus of gallbladder and bile duct without cholecystitis without obstruction; O99.013 Anemia complicating pregnancy, third trimester; D50.9 Iron deficiency anemia, unspecified; Z3A.28 28 weeks gestation of pregnancy
CPT/HCPCS: 36415; 59025; 74330; 76705; 76819; 80053; 81003; 81015; 82570; 83010; 83615; 83690; 84156; 84484; 85025; 85610; 85730; 87086; 90715; 93005; J0696; J1610; J2270; J2405; J3010; J3490

== ENCOUNTER 2019-06-17 21:00 | Inpatient (IN) | payer OTHER, SELFPAY ==
[2019-06-17 21:39] LABS: #Basophils 0.1 thou/uL (0.0-0.2); #Eosinphils 0.1 thou/uL (0.0-0.7); #Lymphocytes 2.3 thou/uL (1.20-3.40); #Monocytes 0.6 thou/uL (0.11-0.59); %Basophils 0.5 % (0.0-1.0); %Eosinophils 0.9 % (0.0-10.0); %Lymphocytes 23.1 % (28.0-48.0); %Monocytes 5.9 % (0.0-4.0); %Neutrophils 69.6 % (31.0-61.0); Mean Corpuscular HGB CONC 33.9 g/dL (32.0-36.0); Mean Corpuscular Hemoglobin 30.1 pg (25.0-35.0); Mean Corpuscular Volume 88.7 fL (78.0-98.0); Mean Platelet Volume 7.9 fL (7.4-10.4); Platelet Count 319 thou/uL (130-400); RBC Distribution Width 12.8 % (11.5-14.5); Red Blood Cell (RBC) Count 4.32 mill/uL (4.00-5.20)
[2019-06-17] MEDS ORDERED: Morphine 4 MG/ML VIAL ONE (21:39)
[2019-06-17 21:57] LABS: ALT (SGPT) 797 U/L (8-55); AST (SGOT) 286 U/L (5-30); Albumin 3.9 g/dL (3.5-5.0); Alkaline Phosphatase 467 U/L (40-150); Anion Gap 16 mmol/L (10-20); BUN (Urea Nitrogen) 11 mg/dL (8.4-21.0); Bilirubin, Total 1.7 mg/dL (0.2-1.2); Calc. Creatinine Clearance 0 mL/min (70-130); Calcium 9.8 mg/dL (7.8-10.44); Carbon Dioxide 21 mmol/L (22-29); Chloride 103 mmol/L (98-107); Estimated GFR-MDRD Greater than 90; Globulin 4.1 g/dL (2.4-3.5); Glucose 97 mg/dL (70-105); Potassium 3.9 mmol/L (3.5-5.1); Sodium 136 mmol/L (136-145)
--- NOTE | 2019-06-17 22:37 | ULT ---
ULTRASOUND ABDOMEN LIMITED: (RIGHT UPPER QUADRANT) 06/17/19 at 9:54 p.m. HISTORY: 18-year-old female with right upper quadrant abdominal pain. FINDINGS: Gallbladder: At least two mobile gallstones visualized in the gallbladder fundus. No mural thickening . No pericholecystic fluid. Common duct: Severely dilated to 14 mm caliber. Liver: There is diffuse intrahepatic biliary ductal dilation. Pancreas: Nonspecific sonographic appearance of pancreatic body. Head and tail obscured. Right kidney: Moderate to severe dilation of right renal collecting system and visualized portion of proximal right ureter. IMPRESSION: 1. Significant dilation of the biliary tree is evidence for common bile duct obstruction, such a s that due to occult choledocholithiasis. 2. Moderate to severe right hydronephrosis. This could either be due to right obstructive uropat hy or hydronephrosis of . 3. Cholelithiasis. SWETHA Leong POS: CET
[2019-06-17 23:37] VITALS: BMI 28.3
[2019-06-17] MEDS ORDERED: Ondansetron PF 4 MG/2 ML Vial IVP PRN (23:44)
[2019-06-17] MEDS ORDERED: Ondansetron ODT 4 MG TAB SL PRN (23:44)
[2019-06-17] MEDS: Sodium Chloride 0.9% 1,000 ML IV SCH (23:59)
[2019-06-18] MEDS: Morphine 4 MG/ML VIAL SLOW IVP PRN ×4 (01:57→09:58)
[2019-06-18 08:28] LABS: #Lymphocytes 1.4 thou/uL (1.20-3.40); #Monocytes 0.6 thou/uL (0.11-0.59); #Neutrophils 7.7 thou/uL (1.40-6.50); %Basophils 0.4 % (0.0-1.0); %Eosinophils 0.5 % (0.0-10.0); %Monocytes 6.6 % (0.0-4.0); %Neutrophils 78.6 % (31.0-61.0); Hemoglobin 11.7 g/dL (12.0-16.0); Mean Corpuscular HGB CONC 33.6 g/dL (32.0-36.0); Mean Corpuscular Hemoglobin 30.1 pg (25.0-35.0); Mean Corpuscular Volume 89.7 fL (78.0-98.0); Mean Platelet Volume 7.8 fL (7.4-10.4); Platelet Count 270 thou/uL (130-400); RBC Distribution Width 12.9 % (11.5-14.5); Red Blood Cell (RBC) Count 3.89 mill/uL (4.00-5.20); White Blood Cell (WBC) Count 9.8 thou/uL (4.8-10.8)
[2019-06-18 08:51] LABS: ALT (SGPT) 823 U/L (8-55); AST (SGOT) 419 U/L (5-30); Albumin 3.3 g/dL (3.5-5.0); Alkaline Phosphatase 404 U/L (40-150); Anion Gap 15 mmol/L (10-20); BUN (Urea Nitrogen) 11 mg/dL (8.4-21.0); Bilirubin, Total 2.4 mg/dL (0.2-1.2); Calc. Creatinine Clearance 185 mL/min (70-130); Calcium 9.1 mg/dL (7.8-10.44); Carbon Dioxide 18 mmol/L (22-29); Chloride 107 mmol/L (98-107); Estimated GFR-MDRD Greater than 90; Globulin 3.3 g/dL (2.4-3.5); Glucose 103 mg/dL (70-105); Protein, Total 6.6 g/dL (6.0-8.3); Sodium 136 mmol/L (136-145)
--- NOTE | 2019-06-18 10:28 | PDOC.EVN ---
Event Note - Event Note Event Note: 06/18/2019 at 10:30 18 year old at 29.4 wks with CHANDLER 08/30/2019 presents with abdominal pain and recent ERCP (06/13) for choledocolithiasis. Symptoms have returned and CBD noted to be 14 mm on RUQ sono. Plan per primary team is likely repeat ERCP with follow up cholecystectomy at later date. From obstetrical standpoint, patient will need intraoperative monitoring as well as monitoring in post-op period which can be arranged through L&D. No other obstetrical interventions needed at this time. Given recent itching of palms and soles, will obtain bile acids to further evaluate for cholestasis of which can go hand in hand with cholelithiasis. Of note, it will take appx 1 week for results to appear. Symptomatic treatment with ursodiol, although no evidence to show this decreases IUFD associated with cholestasis of . We appreciate the product safety consultant and will continue to follow alongside the primary team during this hospitalization. Please see full dictation that is currently pending for more details. Karina Thompson, DO PGY-3
[2019-06-18] MEDS: Sodium Chloride 0.9% 1,000 ML IV SCH (10:47)
--- NOTE | 2019-06-18 10:58 | HP ---
CHIEF COMPLAINT: Cholelithiasis, choledocholithiasis. HISTORY OF PRESENT ILLNESS: This is a 18-year-old female, who was just discharged after being admitted for common bile duct stones. She had an enlarged common bile duct and bilirubin up to 4. She underwent ERCP and sphincterotomy by Dr. Patrick. She is back now after just recently being discharged with more persistent epigastric and mid back pain associated with nausea and vomiting. She does have some right upper quadrant soreness, but no significant pain. She is 29 weeks . PAST MEDICAL HISTORY: Negative. PAST SURGICAL HISTORY: Negative. MEDICATIONS: Medicines taken daily include ferrous fumarate and vitamins. ALLERGIES: NO KNOWN DRUG ALLERGIES. SOCIAL HISTORY: No smoking, alcohol, or other drugs. REVIEW OF SYSTEMS: Otherwise negative. PHYSICAL EXAMINATION: VITAL SIGNS: Blood pressure 126/76, pulse 97, respirations 13, temperature 98.9. HEENT: Sclerae anicteric. Oropharynx clear. NECK: No lymphadenopathy. CHEST: Clear. HEART: Regular rate and rhythm. ABDOMEN: Soft, tender epigastric and right upper quadrant without guarding or rebound. Gravid uterus. No obvious hernias. LABORATORY DATA: White blood cell count is 9, hemoglobin 11, platelet count is 270. Sodium 136, potassium 4.0, creatinine 0.56, bilirubin 2.4. ASSESSMENT: Suspect likely recurrent common bile duct stones. PLAN: Certainly, her operative care is going to be complicated at this point during her with her bilirubin up overnight from 1.7 to 2.4. I suspect recurrent common duct stone. We will discuss with Dr. Patrick. The plan before was for her to have ERCP sphincterotomy as a bridge through delivery and then undergo cholecystectomy after delivery. However, if she keeps passing these very large stones that are not going to pass into the duodenum, she may need operative cholecystectomy during . This would be complicated by the potential for need for open operation. OB hospitalist is seen her as well and recommends monitoring before and after any procedures. We will discuss with Dr. Patrick. Job ID: [id number]
[2019-06-18] MEDS ORDERED: Dextrose 5% in Water 1,000 ML IV PRN (12:56)
[2019-06-18] MEDS ORDERED: Promethazine HCl 25 MG/ML VIAL IM PRN (12:56)
[2019-06-18] MEDS ORDERED: Acetaminophen 650 MG in Premix Bag 1 BAG IVPB PRN (12:56)
[2019-06-18] MEDS ORDERED: Calcium Carbonate 500 MG ChewTAB PO PRN (12:56)
[2019-06-18] MEDS ORDERED: Ondansetron PF 4 MG/2 ML Vial IVP PRN (12:56)
[2019-06-18] MEDS ORDERED: Dextrose 50% Abboject 50 ML SYRINGE SLOW IVP PRN (12:56)
[2019-06-18] MEDS ORDERED: Mag-Al 1200 mg/1200 mg/30 ML UDCUP PO PRN (12:56)
[2019-06-18] MEDS ORDERED: Morphine 4 MG/ML VIAL SLOW IVP PRN (12:56)
[2019-06-18] MEDS ORDERED: Sodium Chloride 0.9% 1,000 ML IV SCH (13:00)
--- NOTE | 2019-06-18 13:28 | CON ---
DATE OF CONSULTATION: 06/18/2019 REASON FOR CONSULT: Choledocolithiasis at 29.4 weeks gestation. HISTORY OF PRESENT ILLNESS: This is a very pleasant 18-year-old female, who was recently admitted for choledocholithiasis and underwent an ERCP on 06/13/2019. Cholangiogram at that time showed a 1.5 cm common bile duct with large distal filling defect. The extrahepatic duct at that time was also dilated. A complete sphincterotomy was performed as well as a mechanical lithotripsy to break up the identified stone. The patient was monitored on Labor and Delivery during the operation as well for a period of time after the operation. She did well and was discharged home. Cholecystectomy was planned for after delivery. However, the patient returned on 06/17 with similar complaints of abdominal pain. She reported the abdominal pain radiating to back similar to the previous presentation. The patient is 29.4 weeks gestation with CHANDLER of 08/30/2019, thus PRODUCT LISTER was consulted for recommendations regarding obstetrical care with the possibility of ERCP and cholecystectomy. Of note, the patient does endorse itching on her palms and her soles, which began over the last few days. Nothing seems to relieve this itching, and nothing seems to make it better. The patient has not had this complaint previously. The patient denies fever. Denies chills, shortness of breath, or chest pain. The patient denies any dysuria. The patient denies nausea, vomiting, vaginal bleeding, vaginal discharge, loss of fluid, or contractions. REVIEW OF SYSTEMS: GENERAL: The patient denies fatigue, weakness, fever, or chills. CARDIOLOGY: The patient denies chest pain or shortness of breath. RESPIRATORY: The patient denies shortness of breath or cough. ABDOMEN: The patient does endorse abdominal pain, worse in the right upper quadrant that radiates to the back similar to the previous presentation. : The patient denies dysuria. SKIN: The patient endorses itching of the palms and soles. PAST MEDICAL HISTORY: The patient denies nay significant past medical history to include hypertension, asthma, and diabetes. PAST SURGICAL HISTORY: Patient with recent ERCP for choledocholithiasis on 06/13/2019. OB HISTORY: The patient has a history of a previous miscarriage at 8 weeks gestation that did not require a D&C. MEDICATIONS: vitamins. ALLERGIES: NO KNOWN DRUG ALLERGIES. SOCIAL HISTORY: The patient denies smoking, alcohol, or drug use. FAMILY HISTORY: The patient denies any pertinent family history. PHYSICAL EXAMINATION: VITAL SIGNS: Temperature 98.9 degrees Fahrenheit, pulse 97, respiratory rate 13 , O2 saturation 98% on room air, and blood pressure now 126/76. GENERAL: The patient is alert and oriented x3, in no acute distress. HEENT: Extraocular muscles intact. Moist mucous membranes. CARDIOVASCULAR: Regular rate and rhythm. RESPIRATORY: No increased work of breathing, no acute respiratory distress. ABDOMEN: Gravid. EXTREMITIES: No signs of cyanosis or edema. NEURO: No gross deficits appreciated. SKIN: No evidence of rash or lesions. LABORATORY DATA: CBC reveals white blood cell count 9.8, hemoglobin 11.7, hematocrit of 34.9, and platelet count of 270. CMP reveals sodium 136, potassium 4.0, chloride 107, bicarb 18, BUN 11, creatinine 0.56, glucose 103, total bilirubin 2.4, AST 419, ALT 823, alkaline phosphatase 404, and albumin 3.3. IMAGING: Abdominal ultrasound revealed significant dilation of the biliary tree , which is evidence for common bile duct extraction likely due to a choledocholithiasis. There is [id number] right hydronephrosis, likely due to a right obstructive uropathy or hydronephrosis of . Cholelithiasis also noted. The common bile duct was severely dilated at 14 mm. ASSESSMENT AND PLAN: 1. Choledocholithiasis: Plan per Primary team. Per report, there is a plan for repeat endoscopic retrograde cholangiopancreatography with possible cholecystectomy on Thursday or sometime early next week. From an obstetric standpoint, the patient is to have monitoring during the operation as well as monitoring postoperation. Otherwise from an obstetric standpoint, there is not much else to do. 2. Itching of palms and soles: There is a correlation between cholestasis of and gallstone production. Given the patient's symptoms, we will obtain total bile acids and further evaluate. Of note, it will take approximately one week to get these results back. We can symptomatically treat the patient for cholestasis of with Ursodiol. However, this has not necessarily been shown to decrease stillbirth associated with cholestasis of , rather it is used as symptomatic treatment. 3. at the 29.4 weeks gestation. The patient with CHANDLER of 08/30/2019. We will monitor the patient as described above during the operation and during the postoperative period. Otherwise, the patient will need routine obstetrical care. Disposition: The patient was admitted to surgical/GI team. We are very thankful for the consult and will continue to follow alongside during this hospital stay. Dr. Lew was present for consultation. Job ID: [id number] MTDD
[2019-06-18] MEDS ORDERED: Ondansetron HCl/PF 4 MG/2 ML Vial IVP PRN (15:00)
[2019-06-18] MEDS ORDERED: Fentanyl 100 MCG/2 ML VIAL ONE (15:11)
[2019-06-18] MEDS ORDERED: Indomethacin 50 MG SUPP ONE (15:38)
[2019-06-18] MEDS ORDERED: Iothalamate Meglumine 60% 50 ML VIAL FS ONE (15:38)
--- NOTE | 2019-06-18 15:52 | CON ---
DATE OF CONSULTATION: CHIEF COMPLAINT: Back pain. HISTORY OF PRESENT ILLNESS: Ms. Kassy Segovia is a 18-year-old woman, who originally presented with choledocholithiasis one week ago on 06/12/2019. She had aching back pain, which was her primary symptom with that. She underwent ERCP on 06/13/2019. She had a sphincterotomy and lithotripsy to break up a large stone in the common bile duct and then balloon sweep of the bile duct with a clear occlusion cholangiogram afterwards. She did not undergo cholecystectomy at that time due to her being 28 weeks at the time of the procedure. Her pain completely resolved after the procedure. Her bilirubin improved. She was discharged home on 06/14/2019. She did well for the next few days and then last night, she had recurrence of the back pain on the evening of 06/17/2019. This was a similar pain to what she had before. No nausea or vomiting. She had one liquidy yellow stool last night, but no other diarrhea. No blood in the stool. No fever. She came to the emergency room. An ultrasound was performed and again shows dilated bile duct. Her liver tests were noted to increase again. PAST MEDICAL HISTORY: Cholelithiasis and choledocholithiasis. PAST SURGICAL HISTORY: Negative. SOCIAL HISTORY: No alcohol, tobacco, or drugs. FAMILY HISTORY: Negative for GI malignancy. ALLERGIES: NO KNOWN DRUG ALLERGIES. MEDICATIONS: Prior to admission, ferrous fumarate and vitamins. REVIEW OF SYSTEMS: Negative x10 systems reviewed except as stated in history of present illness. PHYSICAL EXAMINATION: VITAL SIGNS: Temperature 98.7, pulse 97, blood pressure 121/62. GENERAL: She is in no acute distress. Alert and oriented x3. HEENT: Eyes have no scleral icterus. Oropharynx is clear without lesions. NECK: No cervical or supraclavicular lymphadenopathy. LUNGS: Clear to auscultation bilaterally. HEART: Regular rate and rhythm without murmur. ABDOMEN: Soft. She has some tenderness in the epigastric region without guarding. No tenderness in the right upper quadrant. Her bowel sounds are present. She has gravid uterus. EXTREMITIES: No lower extremity edema. NEUROLOGIC: Cranial nerves are grossly intact. LABORATORY DATA: White blood cell count is 9.8, hemoglobin 11.7, platelets 270. INR 1.0. Creatinine 0.56. Bilirubin on presentation to the emergency room last night was 1.7, bilirubin today has increased to 2.4. Her AST has increased from 286 to 419. Her ALT has increased from 797 to 823, alkaline phosphatase is 404, albumin 3.3. IMPRESSION: 1. Recurrence of choledocholithiasis. She is status post endoscopic retrograde cholangiopancreatography one week ago with sphincterotomy and clearing of a stone from her bile duct. Occlusion cholangiogram was clear. She appears to have dropped a new stone into the bile duct or could have some residual fragment now causing obstruction. A 15 mm balloon would pass through the sphincterotomy at the time of the procedure one week ago. 2. at 29 weeks. 3. Cholelithiasis. 4. She is afebrile with a normal white blood cell count. RECOMMENDATIONS: We will repeat ERCP today. In light of the recurrent choledocholithiasis and goal to make it through the rest of with cholecystectomy occurring after delivery, we will place a couple of plastic biliary stents to allow drainage of the bile duct in case she continues to drop stones into her bile duct. Job ID: [id number]
[2019-06-18] MEDS ORDERED: Succinylcholine Chloride 20 MG/ML 10 ml SYRINGE FS ONE (16:04)
[2019-06-18] MEDS ORDERED: Lidocaine 1% PF 5 ML VIAL ONE (16:04)
[2019-06-18] MEDS ORDERED: Ondansetron PF 4 MG/2 ML Vial ONE (16:04)
[2019-06-18] MEDS ORDERED: Dexamethasone 20 MG/5 ML VIAL ONE (16:04)
[2019-06-18] MEDS ORDERED: PROPOFOL 200 MG/20 ML VIAL ONE (16:04)
--- NOTE | 2019-06-18 16:04 | PDOC.EVN ---
Event Note - Event Note Event Note: Just given status update by resident motion picture scene builder (Jay). Patient is in Endo suite for ERCP but monitors may not have been placed correctly...if we cannot pick up and delivery driver (L&D RN to assess) we will monitor .
--- NOTE | 2019-06-18 17:04 | PDOC.EVN ---
Event Note - Event Note Event Note: NOt able to monitor in OR due to maternal pos. Now in RR and monitors ok. FHTS 140s
--- NOTE | 2019-06-18 17:16 | RAD ---
ERCP 3 views: DATE: 06/18/2019 HISTORY: 18-year-old female male with evidence for biliary obstruction: Diffusely dilated biliary garcia e. FINDINGS: All 3 images contain a plastic biliary stent in the common duct. There is also gas faintly demonstrat ing diffusely dilated intrahepatic biliary tree and upper portion of common hepatic duct. The second image demonstrates a wire paralleling the stent, then distal tip curved to the left overly ing the left lobe of the liver. The final image demonstrates placement of a second plastic biliary stent paralleling the pre-existing The endoscope has been removed in the final image. There is no contrast media in any of the images. IMPRESSION: 1. Diffuse dilation of the biliary tree is evidence for common duct obstruction. 2. First one, and finally 2 plastic biliary stents in the common duct.
--- NOTE | 2019-06-18 18:11 | OP ---
DATE OF PROCEDURE: 06/18/2019 PROCEDURE PERFORMED: Endoscopic retrograde cholangiopancreatography with plastic biliary stent placement. PREOPERATIVE DIAGNOSIS: Recurrent choledocholithiasis. DESCRIPTION OF PROCEDURE: Informed consent was obtained from the patient. She was sedated with general anesthesia and placed in the prone position, propped up more on her left side. The duodenoscope was advanced easily to the second portion of the duodenum, where the ampulla was identified and showed the evidence of the previous sphincterotomy, which appeared open with drainage of clear bile. The bile duct was cannulated with a sphincterotome and a wire was advanced into the intrahepatic ducts. A cholangiogram was performed, briefly that did show multiple filling defects with a dilated common bile duct to 15 mm. The filling defects appeared to be primarily air. However, there was a small stone fragment that flushed out of the sphincterotomy just with injection of contrast. This indicates that there was indeed more stone material that has entered the bile duct from the gallbladder. Exchange was made and plastic biliary stent placement was then performed. An 11.5-Cuban, 5 cm stent was advanced. However, there was a catch in the distal duodenoscope and the stent would not pass through it. The duodenoscope was then removed and a second duodenoscope was reinserted. Two 7 cm, 10-Cuban plastic biliary stents were then placed easily side by side. The distal flange was confirmed to be outside the sphincterotomy with both stents. Good flow of clear bile was confirmed. We did not have 5 cm, 10-Cuban stents available. The patient did have a significant amount of food material retained in the fundus of the stomach. Much of this was suctioned out with the duodenoscope as possible. The air was suctioned out. IMPRESSION: 1. Cholangiogram shows multiple filling defects from air and a dilated common bile duct to 15 mm. There was a small yellow stone fragment that was flushed from the duct through the sphincterotomy and this indicates that there are likely additional stone fragments causing the obstruction she presented with. 2. Two 10-Cuban, 7 cm stents were placed side by side with good drainage of bile. 3. Retained food matter in the stomach was suctioned as much as possible. RECOMMENDATIONS: 1. Follow trend of the liver tests. 2. Repeat ERCP after delivery of her baby to remove the stents and clear the duct of any remaining stones or fragments followed by laparoscopic cholecystectomy the next day. Job ID: [id number]
[2019-06-18] MEDS ORDERED: Acetaminophen 500 MG TAB PO SCH (19:00)
--- NOTE | 2019-06-18 20:05 | PDOC.EVN ---
Event Note - Event Note Event Note: SAMUELGYIftikhar OnCall 2000 Temp 100.9 s/p ERCP/stent Called and discussed with Dr Martha Patrick. No VB, no DELIA Patrick to order zosyn emperically. We will likely transfer back to [facility] this pm
[2019-06-18] MEDS: Lactated Ringer's 1,000 ML IV SCH (21:20)
[2019-06-18] MEDS: Piperacillin/Tazobactam 3.375 GM in Sodium Chloride 0.9% 100 ML IVPB SCH (21:32)
[2019-06-18] MEDS: Famotidine 20 MG TAB PO SCH (21:48)
[2019-06-19] MEDS: Piperacillin/Tazobactam 3.375 GM in Sodium Chloride 0.9% 100 ML IVPB SCH ×4 (03:14→20:59)
[2019-06-19 04:30] LABS: #Lymphocytes 1.2 thou/uL (1.20-3.40); #Monocytes 0.8 thou/uL (0.11-0.59); #Neutrophils 10.9 thou/uL (1.40-6.50); %Basophils 0.3 % (0.0-1.0); %Eosinophils 0.1 % (0.0-10.0); %Monocytes 6.2 % (0.0-4.0); %Neutrophils 84.4 % (31.0-61.0); Hemoglobin 9.2 g/dL (12.0-16.0); Mean Corpuscular HGB CONC 32.7 g/dL (32.0-36.0); Mean Corpuscular Hemoglobin 29.7 pg (25.0-35.0); Mean Corpuscular Volume 90.8 fL (78.0-98.0); Platelet Count 224 thou/uL (130-400); RBC Distribution Width 13.1 % (11.5-14.5); Red Blood Cell (RBC) Count 3.11 mill/uL (4.00-5.20); White Blood Cell (WBC) Count 12.9 thou/uL (4.8-10.8)
[2019-06-19 04:52] LABS: ALT (SGPT) 792 U/L (8-55); AST (SGOT) 441 U/L (5-30); Albumin 2.7 g/dL (3.5-5.0); Alkaline Phosphatase 342 U/L (40-150); Anion Gap 11 mmol/L (10-20); BUN (Urea Nitrogen) 8 mg/dL (8.4-21.0); Bilirubin, Total 3.3 mg/dL (0.2-1.2); Calc. Creatinine Clearance 167 mL/min (70-130); Calcium 8.1 mg/dL (7.8-10.44); Carbon Dioxide 19 mmol/L (22-29); Chloride 109 mmol/L (98-107); Estimated GFR-MDRD Greater than 90; Globulin 2.7 g/dL (2.4-3.5); Glucose 93 mg/dL (70-105); Potassium 3.5 mmol/L (3.5-5.1); Protein, Total 5.4 g/dL (6.0-8.3); Sodium 135 mmol/L (136-145)
[2019-06-19] MEDS: Lactated Ringer's 1,000 ML IV SCH ×4 (06:16→15:16)
--- NOTE | 2019-06-19 08:40 | PRG ---
DATE OF SERVICE: 06/19/2019 SUBJECTIVE: Ms. Elena's epigastric pain is improved. She is sleepy this morning. Denies pain. OBJECTIVE: VITAL SIGNS: Her blood pressure is 98/50, pulse 86, and respirations 19. She is afebrile. ABDOMEN: Soft. Minimally tender in the epigastric area. No guarding or rebound. LABORATORY DATA: White blood cell count is 12, hemoglobin 9, and platelet count is 224. Creatinine 0.62. Her bilirubin is 3.3. ASSESSMENT: Postop day one, repeat ERCP now with stent placement. PLAN: We will allow for her liver function test to trend down before discharge. Job ID: [id number]
[2019-06-19] MEDS: Famotidine 20 MG TAB PO SCH ×2 (09:19→20:59)
--- NOTE | 2019-06-19 11:41 | PDOC.EVN ---
Event Note - Event Note Event Note: 06/19/2019 Dx: Choledocholithiasis s/p ERCP, Possible cholestasis of EGA: 29.5 wks (CH[facility]LER 08/30/2019) S: Patient doing well from obstetrical standpoint. No uterine cramping. O: - VS: BP 100/54, Pulse 96, Pulse ox 99%, RR 24, Temp 99.1 F - General: Patient resting comfortably in bed - HEENT: MMM - Abdomen: Gravid, soft - Ext: No edema A/P: 1. Choledocholithiasis s/p ERCP: Management per primary team 2. 29.5 WGA : Patient received monitoring intraoperatively and post-op for 6 hours with no concerns for compromise. No evidence of PTL. No further monitoring necessary. 3. Possible cholestasis of : Symptoms of itching palms/soles feet. Bile acids sent, but will likely take up to a week to result. Consider ursodiol if symptoms continue and bile acids elevated. Karina Thompson, DO PGY-3
--- NOTE | 2019-06-19 13:46 | PRG ---
DATE OF SERVICE: 06/19/2019 SUBJECTIVE: Ms. Kassy Segovia feels much better today. She has no abdominal pain. No nausea or vomiting. She is tolerating a solid diet. She had had some fever last night, but that has now resolved. OBJECTIVE: VITAL SIGNS: Temperature 98.0, pulse 86, and blood pressure 120/62. GENERAL: She is in no acute distress. Alert and oriented x3. LUNGS: Clear to auscultation bilaterally. HEART: Regular rate and rhythm without murmur. ABDOMEN: Soft, nontender, and nondistended. Bowel sounds are present. Gravid uterus. EXTREMITIES: No lower extremity edema. LABORATORY DATA: White blood cell count 12.9, hemoglobin 9.2, and platelets 224. Creatinine 0.62, bilirubin 3.3, AST 441, ALT 792, alkaline phosphatase 342, and albumin 2.7. IMPRESSION: 1. Choledocholithiasis, status post plastic biliary stent placement. She has two [id number] stents in place. 2. She did have some tachycardia and fever last night. She was treated with Tylenol and incentive spirometer and started on Zosyn. This likely was secondary to atelectasis. RECOMMENDATIONS: 1. Hopefully, we will see her liver tests trending down tomorrow; in which case, she should be able to discharge home tomorrow. As long as her bile duct is draining, then she should not have to continue antibiotics from a biliary standpoint. 2. Continue incentive spirometer. 3. She will need to follow up after delivery at which point we will repeat ERCP to remove the stents and clear her bile duct. She can get her gallbladder taken out the next day. 4. Recheck liver tests tomorrow morning. Job ID: [id number]
[2019-06-20] MEDS: Lactated Ringer's 1,000 ML IV SCH ×3 (02:00→21:48)
[2019-06-20] MEDS: Piperacillin/Tazobactam 3.375 GM in Sodium Chloride 0.9% 100 ML IVPB SCH ×4 (03:27→20:51)
[2019-06-20] MEDS ORDERED: Sodium Chloride 0.9% 10 ML ONE ×2 (03:57→07:21)
[2019-06-20] MEDS: Morphine 2 MG/ML SYRINGE SLOW IVP PRN ×2 (04:02→07:22)
--- NOTE | 2019-06-20 07:36 | PDOC.EVN ---
Event Note - Event Note Event Note: Pt reports pain in upper back is returning. Difficulty making a deep breath. no ob complaints. vitals 108/55 90 26 98.5 sat 95% on RA NAD abdomen soft. fht 140s-150s A/P hd#3 iup 29.6wks s/p ERCP fetus reassuring-nst bid awaiting LFT. General surgery to dispo tachypeic- IS needs to ambulate- will encourage
[2019-06-20] MEDS: Famotidine 20 MG TAB PO SCH ×2 (08:27→20:52)
[2019-06-20 09:30] LABS: #Eosinphils 0.1 thou/uL (0.0-0.7); #Lymphocytes 1.6 thou/uL (1.20-3.40); #Monocytes 0.4 thou/uL (0.11-0.59); #Neutrophils 6.1 thou/uL (1.40-6.50); %Basophils 0.6 % (0.0-1.0); %Eosinophils 0.8 % (0.0-10.0); %Monocytes 5.1 % (0.0-4.0); %Neutrophils 74.5 % (31.0-61.0); Hemoglobin 9.1 g/dL (12.0-16.0); Mean Corpuscular HGB CONC 33.6 g/dL (32.0-36.0); Mean Corpuscular Hemoglobin 30.5 pg (25.0-35.0); Mean Corpuscular Volume 90.8 fL (78.0-98.0); Platelet Count 203 thou/uL (130-400); RBC Distribution Width 13.1 % (11.5-14.5); Red Blood Cell (RBC) Count 2.97 mill/uL (4.00-5.20); White Blood Cell (WBC) Count 8.2 thou/uL (4.8-10.8)
[2019-06-20 09:33] LABS: ALT (SGPT) 544 U/L (8-55); AST (SGOT) 166 U/L (5-30); Albumin 2.7 g/dL (3.5-5.0); Alkaline Phosphatase 369 U/L (40-150); Anion Gap 12 mmol/L (10-20); BUN (Urea Nitrogen) 10 mg/dL (8.4-21.0); Bilirubin, Total 1.7 mg/dL (0.2-1.2); Calc. Creatinine Clearance 170 mL/min (70-130); Calcium 8.5 mg/dL (7.8-10.44); Carbon Dioxide 20 mmol/L (22-29); Chloride 109 mmol/L (98-107); Estimated GFR-MDRD Greater than 90; Glucose 76 mg/dL (70-105); Lipase 28 U/L (8-78); Potassium 3.4 mmol/L (3.5-5.1); Protein, Total 5.7 g/dL (6.0-8.3); Sodium 138 mmol/L (136-145)
--- NOTE | 2019-06-20 09:38 | PDOC.GSPN ---
Surgery Progress Note: Subj - Subjective Patient reports: still having pain (crampy epigastric pain) Surgery Progress Note: Obj - Vital signs Vital signs: Vital Signs - Most Recent Temp Pulse Resp BP Pulse Ox 98.1 F 66 20 111/66 91 L 06/20/19 07:50 06/20/19 07:50 06/20/19 07:50 06/20/19 07:50 06/20/19 07:50 - Physical Exam General: no distress Abdomen: soft, appropriately tender Surgery Progress Note: Results - Labs Result Diagrams: 06/20/19 09:03 06/20/19 09:03 Lab results: Laboratory Results - last 24 hr 06/20/19 06/20/19 09:03 09:03 WBC 8.2 RBC 2.97 L Hgb 9.1 L Hct 27.0 L MCV 90.8 MCH 30.5 MCHC 33.6 RDW 13.1 Plt Count 203 MPV 8.0 Neutrophils % 74.5 H Neutrophils % (Manual) Not Reportable Lymphocytes % 19.0 L Monocytes % 5.1 H Eosinophils % 0.8 Basophils % 0.6 Neutrophils # 6.1 Lymphocytes # 1.6 Monocytes # 0.4 Eosinophils # 0.1 Basophils # 0.0 Sodium 138 Potassium 3.4 L Chloride 109 H Carbon Dioxide 20 L Anion Gap 12 BUN 10 Creatinine 0.61 Estimated GFR (MDRD) Greater than 90 Glucose 76 Calcium 8.5 Total Bilirubin 1.7 H AST 166 H ALT 544 H Alkaline Phosphatase 369 H Serum Total Protein 5.7 L Albumin 2.7 L Globulin 3.0 Albumin/Globulin Ratio 0.9 L Lipase 28 Surgery Progress Note: A/P - Problem (1) Choledocholithiasis Current Visit: No Code(s): K80.50 - CALCULUS OF BILE DUCT W/O CHOLANGITIS OR CHOLECYST W/O OBST Status: Acute - Plan Plan: 18 F third trimester , status post ERCP and stent. Bilirubin trending down, lipase normal. 1. Full liquid diet 2. Continue obs
--- NOTE | 2019-06-20 11:33 | DIS ---
Document dictated in error. Job ID: [id number] MTDD
--- NOTE | 2019-06-20 16:31 | PRG ---
DATE OF SERVICE: 06/20/2019 SUBJECTIVE: Ms. Kassy Segovia started having back pain again last night. She used morphine and the pain improved. Today, she still has some aching in the back and slightly in the right upper quadrant. She has had no nausea or vomiting. OBJECTIVE: VITAL SIGNS: Temperature 99.0, pulse 64, blood pressure 122/71. GENERAL: She is in no acute distress. Alert and oriented x3. LUNGS: Clear to auscultation bilaterally. HEART: Regular rate and rhythm. ABDOMEN: Soft, gravid uterus, nontender, nondistended. Bowel sounds are present. EXTREMITIES: No lower extremity edema. IMPRESSION: 1. Choledocholithiasis, status post biliary stent placement. Her bilirubin has decreased as well as her transaminases have improved today. She is having some recurrent pain again today. We will monitor this clinically. 2. at 29 weeks. RECOMMENDATIONS: 1. She is encouraged to ambulate and take deep breaths. 2. Tylenol for pain control. 3. Advance to full liquid diet and if she tolerates that well, then low-fat diet. 4. Recheck her liver tests tomorrow morning. Job ID: [id number]
[2019-06-21] MEDS: Piperacillin/Tazobactam 3.375 GM in Sodium Chloride 0.9% 100 ML IVPB SCH ×3 (03:19→15:05)
[2019-06-21 04:38] LABS: #Basophils 0.1 thou/uL (0.0-0.2); #Lymphocytes 1.9 thou/uL (1.20-3.40); #Monocytes 0.4 thou/uL (0.11-0.59); %Basophils 1.5 % (0.0-1.0); %Eosinophils 0.7 % (0.0-10.0); %Monocytes 5.8 % (0.0-4.0); %Neutrophils 62.9 % (31.0-61.0); Hemoglobin 8.8 g/dL (12.0-16.0); Mean Corpuscular HGB CONC 34.6 g/dL (32.0-36.0); Mean Corpuscular Volume 89.5 fL (78.0-98.0); Mean Platelet Volume 7.9 fL (7.4-10.4); Platelet Count 208 thou/uL (130-400); RBC Distribution Width 12.7 % (11.5-14.5); Red Blood Cell (RBC) Count 2.84 mill/uL (4.00-5.20); White Blood Cell (WBC) Count 6.4 thou/uL (4.8-10.8)
[2019-06-21 04:54] LABS: ALT (SGPT) 449 U/L (8-55); AST (SGOT) 151 U/L (5-30); Albumin 2.6 g/dL (3.5-5.0); Alkaline Phosphatase 389 U/L (40-150); Anion Gap 12 mmol/L (10-20); BUN (Urea Nitrogen) 9 mg/dL (8.4-21.0); Bilirubin, Total 1.4 mg/dL (0.2-1.2); Calc. Creatinine Clearance 176 mL/min (70-130); Calcium 8.5 mg/dL (7.8-10.44); Carbon Dioxide 20 mmol/L (22-29); Chloride 108 mmol/L (98-107); Estimated GFR-MDRD Greater than 90; Globulin 2.9 g/dL (2.4-3.5); Glucose 71 mg/dL (70-105); Lipase 51 U/L (8-78); Potassium 3.2 mmol/L (3.5-5.1); Protein, Total 5.5 g/dL (6.0-8.3); Sodium 137 mmol/L (136-145)
--- NOTE | 2019-06-21 07:26 | PRG ---
DATE OF SERVICE: 06/21/2019 TIME OF SERVICE: 0655 SUBJECTIVE: The patient is resting comfortably. Upon awakening, she states she feels "much better." The patient tolerated clear liquid diet yesterday with plans to advance to low fat today. OBJECTIVE: VITAL SIGNS: Temperature 98.3, pulse 72, respirations 18, blood pressure 129/65, T-max 99. HEENT: Within normal limits. LUNGS: Clear to auscultation bilaterally. HEART: Regular rate and rhythm. ABDOMEN: Soft and nontender without rebound or guarding. EXTREMITIES: Without clubbing, cyanosis, or edema. Nonstress tests were done b.i.d. yesterday and were reactive. LABORATORY DATA: Hematocrit is 25% today, normal white count. Her LFTs are declining slowly with an AST from 166 to 151 and ALT from 544 to 449. IMPRESSION: 30 weeks and 0 days with choledocholithiasis status post endoscopic retrograde cholangiopancreatography and stent placement x2 with slow clinical improvement. PLAN: Continue to follow along from an OB standpoint, agree with GI and General Surgery management plan. Job ID: [id number]
[2019-06-21] MEDS: Famotidine 20 MG TAB PO SCH (09:22)
[2019-06-21 16:07] VITALS: BP 101/53; TEMP 98.8
--- NOTE | 2019-06-22 03:01 | DIS ---
DATE OF ADMISSION: 06/17/2019 DATE OF DISCHARGE: 06/21/2019 DISCHARGE DIAGNOSES: Recurrent choledocholithiasis, cholelithiasis, . DISCHARGE DIAGNOSES: Recurrent choledocholithiasis, cholelithiasis, . PROCEDURES: ERCP and double stent placement by Dr. Patrick without complication. CONDITION ON DISCHARGE: Improved. STAFF: Dr. Mckeon. CONSULTANTS: Timoteo Patrick MD, Gastroenterology and the OB Hospitalist Service. BRIEF HISTORY: The patient was admitted after having recurrent choledocholithiasis. She had repeat ERCP by Dr. Patrick with stent placement. Her liver function tests trended down. Her pain improved. She is discharged home. She is going to do a low fat, non-fried food diet. She will follow up with Dr. Patrick in a few weeks. I gave her my card, she will call me if she has any issues. She will take Tylenol for pain p.r.n. at home. The plan is for repeat ERCP and stent removal and laparoscopic cholecystectomy after is over. Job ID: [id number]
== END 2019-06-21 18:20 | disposition home or self-care (01) | DRG 833 ==
LOC: ERS 21:00 → SURG A 23:18 → OBSVTOIN 23:18 → 3SE 06-18 10:51
PROVIDERS: ADMIT Surgery; ATTEND Surgery
PROC: 0FC98ZZ Extirpation of Matter from Common Bile Duct, Via Natural or Artificial Opening Endoscopic (ICD-10-PCS; principal; 2019-06-18)
PROC: BF13YZZ Fluoroscopy of Gallbladder and Bile Ducts using Other Contrast (ICD-10-PCS; 2019-06-18)
PROC: 0F798DZ Dilation of Common Bile Duct with Intraluminal Device, Via Natural or Artificial Opening Endoscopic (ICD-10-PCS; 2019-06-18)
DX: O99.613 Diseases of the digestive system complicating pregnancy, third trimester (principal); Z3A.29 29 weeks gestation of pregnancy; K80.70 Calculus of gallbladder and bile duct without cholecystitis without obstruction; R06.82 Tachypnea, not elsewhere classified; R50.9 Fever, unspecified; R00.0 Tachycardia, unspecified
CPT/HCPCS: 36415; 36416; 59025; 74330; 76705; 80053; 82239; 83690; 84702; 85025; 94760; 96374; J1100; J2001; J2270; J2405; J2543; J2704; J3010; J3490

== ENCOUNTER 2019-07-04 12:03 | Day surgery (SDC) | payer OTHER, SELFPAY ==
[2019-07-04 12:37] VITALS: BMI 28.5
--- NOTE | 2019-07-04 15:05 | ULT ---
Exam: Ultrasound biophysical profile, including vascular duplex with color and spectral Doppler imagi ng: HISTORY: Nonreactive NST cholestasis of COMPARISON: 06/14/2019 heart rate 136 bpm. TRISH equals 10.0. breathing was not noted during the exam. bioph ysical profile score equals 6/8. Umbilical artery vascular duplex with color and spectral Doppler imaging demonstrates no significant abnormality. biometry measurements were obtained. Overall gestational age average equals 32 weeks 0 days EDC 08/29/2019 Estimated weight 1957 g at 55 percentile. Nurse Stephanie Alvarez was notified of this finding at the time of dictation by the cath lab technologist .
--- NOTE | 2019-07-04 15:44 | ULT ---
Exam: Limited OB ultrasound including umbilical artery Dopplers and growth evaluation: Comparison made to prior biophysical profile ultrasound the same day Single viable intrauterine fetus in cephalic presentation. Placenta is posterior. TRISH is 10.0. heart rate 136 bpm. biometry: BPD 7.8 cm--31 weeks 1 day Head circumference 28.8 cm--31 weeks 5 days Abdominal circumference 26.4 cm--30 weeks 4 days Femur length 7.0 cm--35 weeks 6 days. Umbilical artery vascular duplex and Doppler evaluation: At the placenta PSV 71 cm/s EDV 30 cm/s Mid umbilical artery PSV 114 cm/s EDV 47 cm/s At the fetus PSV 103 cm/s EDV 55 cm/s IMPRESSION: Single viable intrauterine fetus at 32 weeks 0 days EDC 08/29/2019 Estimated weight 1957 g at 55%, Unremarkable umbilical artery vascular duplex study.
== END 2019-07-04 16:58 | disposition home health service (06) ==
LOC: L&D/OP 12:03
PROVIDERS: ATTEND Family Medicine
DX: O26.613 Liver and biliary tract disorders in pregnancy, third trimester (principal); K80.51 Calculus of bile duct without cholangitis or cholecystitis with obstruction; O36.8330 Maternal care for abnormalities of the fetal heart rate or rhythm, third trimester, not applicable or unspecified; Z3A.31 31 weeks gestation of pregnancy; Z79.899 Other long term (current) drug therapy
CPT/HCPCS: 76815; 76819

== ENCOUNTER 2019-07-13 20:23 | Emergency (ER) | payer OTHER ==
[2019-07-13] MEDS ORDERED: Ondansetron PF 4 MG/2 ML Vial ONE (20:47)
[2019-07-13] MEDS ORDERED: Morphine 4 MG/ML VIAL ONE ×2 (20:47→23:16)
[2019-07-13 20:48] LABS: #Basophils 0.2 thou/uL (0.0-0.2); #Eosinphils 0.3 thou/uL (0.0-0.7); #Lymphocytes 4.8 thou/uL (1.20-3.40); #Monocytes 0.7 thou/uL (0.11-0.59); #Neutrophils 10.4 thou/uL (1.40-6.50); %Eosinophils 1.9 % (0.0-10.0); %Lymphocytes 29.5 % (28.0-48.0); %Neutrophils 63.6 % (31.0-61.0); Mean Corpuscular HGB CONC 34.7 g/dL (32.0-36.0); Mean Corpuscular Hemoglobin 30.3 pg (25.0-35.0); Mean Corpuscular Volume 87.3 fL (78.0-98.0); Mean Platelet Volume 8.6 fL (7.4-10.4); Platelet Count 242 thou/uL (130-400); RBC Distribution Width 13.6 % (11.5-14.5); Red Blood Cell (RBC) Count 4.29 mill/uL (4.00-5.20); White Blood Cell (WBC) Count 16.4 thou/uL (4.8-10.8)
[2019-07-13 21:08] LABS: ALT (SGPT) 13 U/L (8-55); AST (SGOT) 15 U/L (5-30); Albumin 3.8 g/dL (3.5-5.0); Alkaline Phosphatase 215 U/L (40-150); Anion Gap 16 mmol/L (10-20); BUN (Urea Nitrogen) 14 mg/dL (8.4-21.0); Bilirubin, Total 0.5 mg/dL (0.2-1.2); Calc. Creatinine Clearance 0 mL/min (70-130); Calcium 9.4 mg/dL (7.8-10.44); Carbon Dioxide 17 mmol/L (22-29); Chloride 105 mmol/L (98-107); Estimated GFR-MDRD Greater than 90; Globulin 3.4 g/dL (2.4-3.5); Glucose 110 mg/dL (70-105); Lipase 10 U/L (8-78); Potassium 3.8 mmol/L (3.5-5.1); Protein, Total 7.2 g/dL (6.0-8.3); Sodium 134 mmol/L (136-145)
--- NOTE | 2019-07-13 22:50 | ULT ---
ULTRASOUND ABDOMEN LIMITED: (RIGHT UPPER QUADRANT) DATE: 07/13/2019 HISTORY: 18-year-old female with right upper quadrant abdominal pain COMPARISON: 06/17/2019 FINDINGS: Gallbladder:More contracted than on prior ultrasound. Several tiny gallstones, a few millimeters in s ize each. Mural thickening up to 4 mm, which may or may not be due to the contraction of the gallbladder. Common duct: 10 mm. Was previously 14 mm. Liver:Echogenicity within normal limits. Intrahepatic biliary ductal dilation has improved. Pancreas:Nonspecific sonographic appearance. Right kidney:Moderate to severe dilation of collecting system, similar to prior study. IMPRESSION: 1) cholelithiasis. 2) dilation of biliary tree is suspicious for partial occlusion by occult choledocholithiasis. This b iliary ectasia has improved since prior study. 3) high-grade right hydronephrosis, either due to hydronephrosis of or right ureteral obstr uction.
[2019-07-13] MEDS ORDERED: Piperacillin/Tazobactam 4.5 GM VIAL ONE (23:16)
== END 2019-07-13 23:58 | disposition home or self-care (01) ==
LOC: ERS 20:23
DX: O99.613 Diseases of the digestive system complicating pregnancy, third trimester (principal); K80.20 Calculus of gallbladder without cholecystitis without obstruction; Z3A.33 33 weeks gestation of pregnancy
CPT/HCPCS: 76705; 80053; 83690; 85025; 96361; 96365; 96375; 96376; J2270; J2405; J2543

== ENCOUNTER 2019-08-10 20:15 | Inpatient (IN) | payer MEDICAID, OTHER, SELFPAY ==
[~2019-08-10 20:15] MED LIST: Bupivacaine PF 0.5% 30 ML VIAL ONE
[2019-08-10] MEDS ORDERED: HYDROcodone/Acetaminophen 5/325 mg Tablet PO PRN (20:33)
[2019-08-10] MEDS ORDERED: Ondansetron PF 4 MG/2 ML Vial IVP PRN (20:33)
[2019-08-10] MEDS ORDERED: Promethazine HCl 25 MG/ML VIAL IM PRN (20:33)
[2019-08-10] MEDS ORDERED: Methylergonovine 0.2 MG/ML VIAL IM PRN (20:33)
[2019-08-10] MEDS ORDERED: Carboprost 250 MCG/ML AMP IM PRN (20:33)
[2019-08-10] MEDS ORDERED: Docusate 100 MG CAP PO PRN (20:33)
[2019-08-10] MEDS ORDERED: NS / Oxytocin 40 units/1000ml 1,000 ML IV PRN (20:33)
[2019-08-10] MEDS ORDERED: Lidocaine 1% (PF) 30 ML VIAL SC PRN (20:33)
[2019-08-10] MEDS ORDERED: Misoprostol 200 MCG TAB PR PRN (20:33)
[2019-08-10] MEDS ORDERED: Diphenoxylate HCl/Atropine Tablet PO PRN (20:33)
[2019-08-10] MEDS ORDERED: hydrALAZINE 20 MG/ML VIAL SLOW IVP PRN (20:33)
[2019-08-10] MEDS ORDERED: Ibuprofen 800 MG TAB PO PRN (20:33)
[2019-08-10] MEDS ORDERED: NS w/ Oxytocin 10 units 500 ML IV SCH ×2 (20:45)
[2019-08-10 21:08] VITALS: BMI 29.4
[2019-08-10] MEDS: Lactated Ringer's 1,000 ML IV SCH (21:35)
[2019-08-10 21:50] LABS: Hemoglobin 11.3 g/dL (12.0-16.0); Mean Corpuscular HGB CONC 35.3 g/dL (32.0-36.0); Mean Corpuscular Hemoglobin 29.4 pg (25.0-35.0); Mean Corpuscular Volume 83.4 fL (78.0-98.0); Mean Platelet Volume 8.4 fL (7.4-10.4); Platelet Count 276 thou/uL (130-400); RBC Distribution Width 13.1 % (11.5-14.5); Red Blood Cell (RBC) Count 3.84 mill/uL (4.00-5.20); White Blood Cell (WBC) Count 11.1 thou/uL (4.8-10.8)
[2019-08-10] MEDS: Misoprostol 100 MCG TAB PO SCH (22:09)
[2019-08-10 22:37] LABS: HBSAg Index 0.12 S/CO (0-0.99); Hep B Surf Ag Non-Reactive S/CO (NonReactive)
[2019-08-10 22:42] LABS: Syphilis Antibody Nonreactive (Nonreactive); Syphilis Antibody Index 0.18 S/CO (<1.00 Non-Reactive)
[2019-08-11] MEDS: Misoprostol 100 MCG TAB PO SCH (03:10)
[2019-08-11] MEDS: Lactated Ringer's 1,000 ML IV SCH (04:34)
[2019-08-11] MEDS: Butorphanol Tartrate 1 MG/ML VIAL SLOW IVP PRN ×2 (07:34→08:59)
[2019-08-11] MEDS ORDERED: Fentanyl 4 mcg/Bup 0.1% Cadd 100 ML ONE (09:35)
[2019-08-11] MEDS ORDERED: Acetaminophen 325 MG TAB PO PRN (10:42)
[2019-08-11] MEDS ORDERED: diphenhydrAMINE 50 MG/ML VIAL IVP PRN (10:42)
[2019-08-11] MEDS ORDERED: Lactated Ringer's 500 ML IV PRN (10:42)
[2019-08-11] MEDS ORDERED: Ondansetron PF 4 MG/2 ML Vial IVP PRN ×2 (10:42→21:47)
[2019-08-11] MEDS ORDERED: ePHEDrine/0.9% NaCl/PF SYRINGE 50 mg/10 ml SLOW IVP PRN (10:42)
[2019-08-11] MEDS ORDERED: Naloxone HCl 0.4 mg/ml Vial IVP PRN ×2 (10:42)
[2019-08-11] MEDS ORDERED: Promethazine HCl 25 MG/ML VIAL IM PRN ×2 (10:42→21:47)
[2019-08-11] MEDS ORDERED: Fentanyl 4 mcg/Bupivacaine 0.1% Cassette 100 ML EPIDURAL SCH (10:45)
[2019-08-11] MEDS ORDERED: Communication Order-Pharmacy FS SCH (10:45)
[2019-08-11] MEDS ORDERED: Lanolin Ointment 7 GM TUBE TOP PRN (21:47)
[2019-08-11] MEDS ORDERED: Preparation H Ointment 28 GM TUBE PR PRN (21:47)
[2019-08-11] MEDS ORDERED: Milk Of Magnesia 30 ML UDCUP PO PRN (21:47)
[2019-08-11] MEDS ORDERED: Bisacodyl 10 MG SUPP PR PRN (21:47)
[2019-08-11] MEDS ORDERED: NS / Oxytocin 40 units/1000ml 1,000 ML IV SCH (21:47)
[2019-08-11] MEDS ORDERED: Adacel (T-DAP) 0.5 ML SYRINGE IM ONE (21:47)
[2019-08-11] MEDS ORDERED: hydrALAZINE 20 MG/ML VIAL SLOW IVP PRN (21:47)
[2019-08-11] MEDS ORDERED: diphenhydrAMINE 25 MG CAP PO PRN (21:47)
[2019-08-11] MEDS ORDERED: HYDROcodone/Acetaminophen 5/325 mg Tablet PO PRN ×2 (21:47)
[2019-08-11] MEDS ORDERED: Benzocaine-Menthol 82.5 ML CAN TOP PRN (21:47)
[2019-08-11] MEDS ORDERED: Docusate Calcium (SURFAK) 240 MG CAP PO SCH (22:00)
[2019-08-11] MEDS: Ibuprofen 800 MG TAB PO SCH ×2 (22:19→22:20)
[2019-08-12] MEDS: Misoprostol 100 MCG TAB PO SCH (03:17)
[2019-08-12] MEDS: Lactated Ringer's 1,000 ML IV SCH (03:18)
[2019-08-12] MEDS: Ibuprofen 800 MG TAB PO SCH ×6 (05:41→23:56)
[2019-08-12 06:26] LABS: Hemoglobin 10.2 g/dL (12.0-16.0); Mean Corpuscular HGB CONC 34.8 g/dL (32.0-36.0); Mean Corpuscular Hemoglobin 29.4 pg (25.0-35.0); Mean Corpuscular Volume 84.7 fL (78.0-98.0); Mean Platelet Volume 8.3 fL (7.4-10.4); Platelet Count 207 thou/uL (130-400); RBC Distribution Width 13.2 % (11.5-14.5); Red Blood Cell (RBC) Count 3.48 mill/uL (4.00-5.20)
[2019-08-12] MEDS: Prenatal Vitamin 1 TAB PO SCH (08:00)
[2019-08-12] MEDS: Docusate Calcium (SURFAK) 240 MG CAP PO SCH ×2 (08:00→22:09)
[2019-08-12] MEDS: Ferrous Sulfate 325 MG TAB PO SCH ×2 (08:01→16:47)
[2019-08-13 00:03] VITALS: TEMP 98.9
[2019-08-13] MEDS: Ibuprofen 800 MG TAB PO SCH ×2 (06:20)
[2019-08-13 08:12] VITALS: BP 118/82
[2019-08-13] MEDS: Ferrous Sulfate 325 MG TAB PO SCH (08:46)
[2019-08-13] MEDS: Docusate Calcium (SURFAK) 240 MG CAP PO SCH (08:58)
[2019-08-13] MEDS: Prenatal Vitamin 1 TAB PO SCH (08:58)
== END 2019-08-13 13:30 | disposition home or self-care (01) | DRG 805 ==
LOC: L&D-LIB 20:15 → L&D 20:26 → 3SW 08-11 19:08
PROVIDERS: ADMIT Family Medicine; ATTEND Family Medicine
PROC: 10907ZC Drainage of Amniotic Fluid, Therapeutic from Products of Conception, Via Natural or Artificial Opening (ICD-10-PCS; principal; 2019-08-10)
PROC: 10E0XZZ Delivery of Products of Conception, External Approach (ICD-10-PCS; 2019-08-10)
PROC: 3E033VJ Introduction of Other Hormone into Peripheral Vein, Percutaneous Approach (ICD-10-PCS; 2019-08-10)
DX: O26.62 Liver and biliary tract disorders in childbirth (principal); K83.1 Obstruction of bile duct; Z37.0 Single live birth; Z3A.37 37 weeks gestation of pregnancy; O70.0 First degree perineal laceration during delivery
CPT/HCPCS: 36415; 85027; 86780; 86850; 86900; 86901; 87340; J0595; J2590; S0020